=== PATIENT | female | born 1995 | race Caucasian/White ===

== ENCOUNTER 2016-08-23 11:30 | Emergency (ER) | payer MEDICAID ==
[2016-08-23] MEDS ORDERED: ALBUTEROL NEB 2.5 MG/3 ML INH STA (12:21)
[2016-08-23] MEDS ORDERED: predniSONE 20 MG TABLET PO STA (12:21)
[2016-08-23] MEDS ORDERED: predniSONE 20 MG TABLET ONE (12:29)
[2016-08-23] MEDS ORDERED: ALBUTEROL NEB 2.5 MG/3 ML INH ONE (12:30)
== END 2016-08-23 13:02 | disposition home or self-care (01) ==
DX: J06.9 Acute upper respiratory infection, unspecified (principal); B97.89 Other viral agents as the cause of diseases classified elsewhere; J45.909 Unspecified asthma, uncomplicated; K21.9 Gastro-esophageal reflux disease without esophagitis
CPT/HCPCS: 71020; 94150; 94640; 99283; 99284; J7512; J7613

== ENCOUNTER 2016-09-25 10:24 | Outpatient (CLI) | payer MEDICAID | END 2016-09-25 10:25 | disposition home or self-care (01) | DX: J20.9 Acute bronchitis, unspecified (principal) ==

== ENCOUNTER 2016-10-25 00:38 | Emergency (ER) | payer MEDICAID ==
--- NOTE | 2016-10-25 00:57 | ED Physician Documentation ---
PD HPI FEMALE - Stated complaint Stated Complaint: 8W ,BLEEDING - Chief complaint Chief Complaint: General - History obtained from History obtained from: Patient - History of Present Illness Timing - onset: Enter time (18:00), Today Timing - duration: Hours Timing - details: Abrupt onset Pain level max: 0 Associated symptoms: Vaginal bleeding. No: Fever Contributing factors: Recently seen: Not recently seen - Additional information Additional information: vaginal bleeding approximately 6PM after intercourse. she has mild pelvic cramping as well. she is approximately 8 weeks Review of Systems Constitutional: reports: Reviewed and negative Cardiac: reports: Reviewed and negative Respiratory: reports: Reviewed and negative GI: reports: Reviewed and negative : reports: Vaginal bleeding, Now EGA. 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 : None HEENT: None Psych: None Musculoskeletal: None Derm: None - Past Surgical History Past Surgical History: Yes /HYGIENE TEACHER: section - Present Medications Home Medications: Ambulatory Orders Medication Instructions Recorded Confirmed Albuterol Sulf [Ventolin Hfa 1 puffs INH Q4HR PRN 05/25/16 08/23/16 Inhaler] Albuterol Oral Soln 1 amp INH Q3HR PRN 08/23/16 08/23/16 Benzonatate [Tessalon Perle] 100 mg PO TID PRN #30 capsule 08/23/16 Prednisone 40 mg PO DAILY 5 Days 08/23/16 - Allergies Allergies/Adverse Reactions: Allergies Allergy/AdvReac Type Severity Reaction Status Date / Time No Known Drug Allergies Allergy Verified 10/25/16 00:44 - Social History Does the pt smoke?: No Smoking Status: Never smoker Does the pt drink ETOH?: No Does the pt have substance abuse?: No - Immunizations Immunizations are current?: No Immunizations: TDAP >10years/unknown - POLST Patient has POLST: No PD ED PE NORMAL - Vitals Vital signs reviewed: Yes - General General: Alert and oriented X 3, No acute distress, Well developed/nourished - Cardiac Cardiac: RRR, No murmur - Respiratory Respiratory: No respiratory distress, Clear bilaterally - Abdomen Abdomen: Normal bowel sounds, Soft, Non tender, Non distended - Back Back: No CVA TTP Results - Vitals Vitals: Oxygen O2 Source Room air - Labs Labs: Laboratory Tests 10/25/16 10/25/16 10/25/16 00:32 01:59 01:59 WBC 9.4 RBC 4.52 Hgb 13.0 Hct 38.5 MCV 85.3 MCH 28.8 MCHC 33.8 RDW 13.7 Plt Count 175 MPV 10.1 Neut # 5.8 Lymph # 2.2 Pierce # 0.9 Eos # 0.4 Baso # 0.1 Absolute Nucleated RBC 0.00 Nucleated RBCs 0.0 HCG, Quant 1918.00 Urine Color YELLOW Urine Clarity CLEAR Urine pH 5.5 Ur Specific Silvis >=1.030 H Urine Protein NEGATIVE Urine Glucose (UA) NEGATIVE Urine Ketones NEGATIVE Urine Occult Blood SMALL H Urine Nitrite NEGATIVE Urine Bilirubin NEGATIVE Urine Urobilinogen 0.2 (NORMAL) Ur Leukocyte Esterase NEGATIVE Urine RBC 0-5 Urine WBC 0-3 Ur Squamous Epith Cells FEW Squamous Urine Bacteria Rare Urine Mucus Moderate Strands Ur Microscopic Review INDICATED Urine Culture Comments NOT INDICATED Urine HCG, Qual POSITIVE Blood Type 10/25/16 01:59 WBC RBC Hgb Hct MCV MCH MCHC RDW Plt Count MPV Neut # Lymph # Pierce # Eos # Baso # Absolute Nucleated RBC Nucleated RBCs HCG, Quant Urine Color Urine Clarity Urine pH Ur Specific Silvis Urine Protein Urine Glucose (UA) Urine Ketones Urine Occult Blood Urine Nitrite Urine Bilirubin Urine Urobilinogen Ur Leukocyte Esterase Urine RBC Urine WBC Ur Squamous Epith Cells Urine Bacteria Urine Mucus Ur Microscopic Review Urine Culture Comments Urine HCG, Qual Blood Type O POSITIVE - Rads (name of study) pelvic/TV US Radiology: Prelim report reviewed, See rad report PD MEDICAL DECISION MAKING - ED course Complexity details: reviewed results, re-evaluated patient, considered differential, d/w patient Departure - Departure Disposition: 01 Home, Self Care Clinical Impression: Vaginal bleeding in Condition: Good Instructions: ED Miscarriage Poss Follow-Up: Suyapa Alas DO [Provider Admit Priv/Credential] - (Call Thursday to arrange for next available appointment) Discharge Date/Time: 10/25/16 04:20
[2016-10-25 01:13] LABS: BILIRUBIN,URINE NEGATIVE (NEGATIVE); HCG UR QUAL POSITIVE; PH,URINE 5.5 PH (5.0-7.5); UA w/ MICROSCOPIC CHARGE YES
[2016-10-25 01:21] LABS: UR CULTURE IF IND NOT INDICATED; WBC,URINE 0-3 /HPF (0-5)
[2016-10-25 02:09] LABS: BASOPHILS # (AUTO) 0.1 10^3/uL (0.0-0.1); BASOPHILS % (AUTO) 1.3 %; EOSINOPHILS # (AUTO) 0.4 10^3/uL (0.0-0.7); EOSINOPHILS % (AUTO) 3.9 %; HCT - HEMATOCRIT 38.5 % (37.0-47.0); LYMPHOCYTES # (AUTO) 2.2 10^3/uL (1.5-3.5); LYMPHOCYTES % (AUTO) 23.4 %; MEAN CORPUSCULAR HEMOGLOBIN 28.8 pg (27.0-31.0); MEAN CORPUSCULAR HGB CONC 33.8 g/dL (32.0-36.0); MEAN CORPUSCULAR VOLUME 85.3 fL (81.0-99.0); MEAN PLATELET VOLUME 10.1 fL (7.9-10.8); MONOCYTES # (AUTO) 0.9 10^3/uL (0.0-1.0); MONOCYTES % (AUTO) 9.8 %; NEUTROPHILS # (AUTO) 5.8 10^3/uL (1.5-6.6); NEUTROPHILS % (AUTO) 61.6 %; RED BLOOD COUNT 4.52 10^6/uL (4.20-5.40); RED CELL DISTRIBUTION WIDTH 13.7 % (12.0-15.0); UNCORRECTED WHITE BLOOD COUNT 9.4 x10^3/uL; WHITE BLOOD COUNT 9.4 x10^3/uL (4.8-10.8)
[2016-10-25 03:41] VITALS: BP 148/55
--- NOTE | 2016-10-25 03:41 | Ultrasound Preliminary Report ---
Exam: US OB First Trimester IMPRESSION: 1. Single intrauterine gestational sac at EGA 6 weeks 1 day with NICHOLE 06/19/2017 based on crown-rump l ength, which is discordant with clinical dates. 2. No yolk sac or cardiac activity identified. Sac position is lower than typically seen. Sonographic follow-up is recommended. [facility] SITE ID: [id number]
--- NOTE | 2016-10-25 03:42 | Ultrasound Preliminary Report ---
Exam: US OB Transvaginal IMPRESSION: 1. Single intrauterine gestational sac at EGA 6 weeks 1 day with NICHOLE 06/19/2017 based on crown-rump l ength, which is discordant with clinical dates. 2. No yolk sac or cardiac activity identified. Sac position is lower than typically seen. Sonographic follow-up is recommended. [facility] SITE ID: [id number]
--- NOTE | 2016-10-25 03:44 | Ultrasound Report ---
EXAM: FIRST TRIMESTER OBSTETRIC ULTRASOUND (Less than 11 weeks) EXAM DATE: 10/25/2016 02:56 AM. CLINICAL HISTORY: Vaginal bleeding, . LMP: 09/01/2016. COMPARISONS: None. TECHNIQUE: Transabdominal and transvaginal ultrasound examination with static image documentation. CLINICAL DATES: EGA 7 weeks 5 days with NICHOLE 06/08/2017 based on LMP. ASSESSMENT: Gestational Sac: Single intrauterine, somewhat low in the endometrial cavity. Mean gestational sac d iameter: 11.1 mm = 5 weeks 6 days. Embryo: CRL (crown-rump length) 3 mm = 6 weeks 1 day. Cardiac activity: Not seen. Yolk sac: Not seen. Early placenta: Not visible at this gestational age. Other: There is a tiny collection adjacent to the gestational sac measuring 3 mm.. MATERNAL STRUCTURES: Uterus: Anteverted/Retroverted. Unremarkable. Cervix: Closed. Right Ovary: 3.0 x 2.9 x 2.8 cm, volume 12.7 cc. Unremarkable. Left Ovary: 2.9 x 2.5 x 2.3 cm, volume 8.5 cc. Unremarkable. Free Fluid: None. Other: None. IMPRESSION: 1. Single intrauterine gestational sac at EGA 6 weeks 1 day with NICHOLE 06/19/2017 based on crown-rump l ength, which is discordant with clinical dates. 2. No yolk sac or cardiac activity identified. Sac position is lower than typically seen. Sonographic follow-up is recommended. [facility] Referring Provider Line: [phone] SITE ID: [id number]
== END 2016-10-25 04:20 | disposition home or self-care (01) ==
LOC: ED 00:38
DX: O20.9 Hemorrhage in early pregnancy, unspecified (principal); O99.511 Diseases of the respiratory system complicating pregnancy, first trimester; J45.909 Unspecified asthma, uncomplicated; O99.611 Diseases of the digestive system complicating pregnancy, first trimester; K21.9 Gastro-esophageal reflux disease without esophagitis; Z3A.01 Less than 8 weeks gestation of pregnancy
CPT/HCPCS: 36415; 76801; 76817; 81001; 81003; 81025; 84702; 85025; 86900; 86901; 87086; 99283

== ENCOUNTER 2017-07-03 18:02 | Emergency (ER) | payer MEDICAID ==
[2017-07-03] MEDS ORDERED: SODIUM CHLORIDE 0.9% 1,000 ML IV ONE ×2 (18:48)
[2017-07-03 19:17] LABS: BASOPHILS # (AUTO) 0.1 10^3/uL (0.0-0.1); EOSINOPHILS # (AUTO) 0.3 10^3/uL (0.0-0.7); EOSINOPHILS % (AUTO) 4.1 %; HGB - HEMOGLOBIN 13.2 g/dL (12.0-16.0); LYMPHOCYTES # (AUTO) 1.7 10^3/uL (1.5-3.5); LYMPHOCYTES % (AUTO) 23.3 %; MEAN CORPUSCULAR HEMOGLOBIN 28.3 pg (27.0-31.0); MEAN CORPUSCULAR HGB CONC 33.2 g/dL (32.0-36.0); MEAN CORPUSCULAR VOLUME 85.2 fL (81.0-99.0); MONOCYTES # (AUTO) 0.7 10^3/uL (0.0-1.0); MONOCYTES % (AUTO) 9.5 %; NEUTROPHILS # (AUTO) 4.6 10^3/uL (1.5-6.6); NEUTROPHILS % (AUTO) 62.1 %; PLT - PLATELET COUNT 183 10^3/uL (130-450); RED BLOOD COUNT 4.67 10^6/uL (4.20-5.40); WHITE BLOOD COUNT 7.3 x10^3/uL (4.8-10.8)
[2017-07-03 19:30] LABS: ALBUMIN 3.9 g/dL (3.2-5.5); ALBUMIN/GLOBULIN RATIO 1.1 (1.0-2.2); BILIRUBIN,TOTAL 0.4 mg/dL (0.2-1.0); CALCIUM 8.8 mg/dL (8.5-10.3); CREATININE 0.6 mg/dL (0.4-1.0); TOTAL PROTEIN 7.3 g/dL (6.7-8.2)
--- NOTE | 2017-07-03 19:32 | ED Physician Documentation ---
History of Present Illness - Stated complaint Stated Complaint: 8 WEEKS/VOMITING - Chief complaint Chief Complaint: Abd Pain - History obtained from History obtained from: Patient - History of Present Illness Timing: How many days ago (several) Pain level max: 4 Pain level now: 4 Improved by: nothing Worsened by: nothing - Additonal information Additional information: Patient is a 21-year-old female 5 para 3 who presents to the emergency department with vomiting for the past several days. States this is typical in her pregnancies. She denies any vaginal bleeding or discharge, but does have right-sided pelvic pain. This is been increasing as well. Has not had an ultrasound yet. Review of Systems Constitutional: denies: Fever, Chills Nose: denies: Rhinorrhea / runny nose, Congestion Throat: denies: Sore throat GI: reports: Nausea, Vomiting. 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 07/03/17 [Yael Rodriguez 10-10 mg Tablet] Metoclopramide [Reglan] 10 mg PO Q6H PRN #10 tablet 07/03/17 - Allergies Allergies/Adverse Reactions: Allergies Allergy/AdvReac Type Severity Reaction Status Date / Time No Known Drug Allergies Allergy Verified 07/03/17 18:27 - Social History Does the pt smoke?: No Smoking Status: Never smoker Does the pt drink ETOH?: No Does the pt have substance abuse?: No - Immunizations Immunizations are current?: Yes Immunizations: TDAP >10years/unknown - POLST Patient has POLST: No PD ED PE NORMAL - Vitals Vital signs reviewed: Yes - General General: Alert and oriented X 3, No acute distress - HEENT HEENT: Moist mucous membranes - Neck Neck: Supple, no meningeal sign - Cardiac Cardiac: RRR - Respiratory Respiratory: No respiratory distress, Clear bilaterally - Abdomen Abdomen: Soft, Non tender, Non distended - Derm Derm: Warm and dry, No rash - Extremities Extremities: No edema, No calf tenderness / cord - Neuro Neuro: Alert and oriented X 3 - Psych Psych: Normal mood, Normal affect Results - Vitals Vitals: Vital Signs - 24 hr 07/03/17 07/03/17 07/03/17 18:23 20:37 22:40 Temperature 36.8 C 36.5 C Heart Rate 98 92 95 Respiratory 16 16 18 Rate Blood Pressure 150/64 H 141/79 H 158/88 H O2 Saturation 99 98 100 Oxygen O2 Source Room air - Labs Labs: Laboratory Tests 07/03/17 07/03/17 07/03/17 16:00 19:00 19:08 WBC 7.3 RBC 4.67 Hgb 13.2 Hct 39.8 MCV 85.2 MCH 28.3 MCHC 33.2 RDW 14.0 Plt Count 183 MPV 10.0 Neut # 4.6 Lymph # 1.7 Lagrange # 0.7 Eos # 0.3 Baso # 0.1 Absolute Nucleated RBC 0.01 Nucleated RBC % 0.1 Sodium Potassium Chloride Carbon Dioxide Anion Gap BUN Creatinine Estimated GFR (MDRD) Glucose Calcium Total Bilirubin AST ALT Alkaline Phosphatase Total Protein Albumin Globulin Albumin/Globulin Ratio Lipase HCG, Quant 19090.00 Urine Color YELLOW Urine Clarity CLEAR Urine pH 7.5 Ur Specific Parnell 1.015 Urine Protein TRACE Urine Glucose (UA) NEGATIVE Urine Ketones NEGATIVE Urine Occult Blood NEGATIVE Urine Nitrite NEGATIVE Urine Bilirubin NEGATIVE Urine Urobilinogen 1 (NORMAL) Ur Leukocyte Esterase NEGATIVE Ur Microscopic Review NOT INDICATED Urine Culture Comments NOT INDICATED 07/03/17 19:08 WBC RBC Hgb Hct MCV MCH MCHC RDW Plt Count MPV Neut # Lymph # Lagrange # Eos # Baso # Absolute Nucleated RBC Nucleated RBC % Sodium 134 L Potassium 3.6 Chloride 101 Carbon Dioxide 23 Anion Gap 10.0 BUN 9 Creatinine 0.6 Estimated GFR (MDRD) 126 Glucose 91 Calcium 8.8 Total Bilirubin 0.4 AST 16 ALT 13 Alkaline Phosphatase 72 Total Protein 7.3 Albumin 3.9 Globulin 3.4 Albumin/Globulin Ratio 1.1 Lipase 19 L HCG, Quant Urine Color Urine Clarity Urine pH Ur Specific Parnell Urine Protein Urine Glucose (UA) Urine Ketones Urine Occult Blood Urine Nitrite Urine Bilirubin Urine Urobilinogen Ur Leukocyte Esterase Ur Microscopic Review Urine Culture Comments - Rads (name of study) pelvic US Radiology: Prelim report reviewed, EMP read contemporaneously, See rad report ( Single viable intrauterine at EGA 6 weeks 3 days with NICHOLE 02/23/2018 based on crown-rump length Small mack-gestational bleed. ) PD MEDICAL DECISION MAKING - ED course Complexity details: reviewed old records, reviewed results, re-evaluated patient , considered differential, d/w patient ED course: Patient presents to the emergency department with -induced vomiting. Feels better after IV fluids and was tolerating p.o. without difficulty here. Ultrasound reveals an intrauterine with a heart rate. No evidence of ectopic . We will have her follow-up with her doctor for further evaluation and care. Patient counseled regarding signs and symptoms for which I believe and urgent re-evaluation would be necessary. Patient with good understanding of and agreement to plan and is comfortable going home at this time This document was made in part using voice recognition software. While efforts are made to proofread this document, sound alike and grammatical errors may occur. Departure - Departure Disposition: 01 Home, Self Care Clinical Impression: First trimester , Vomiting of Condition: Good Instructions: ED Preg Morning Sickness Follow-Up: Jazzmine Resendez ARNP [Primary Care Provider] - Within 1 week Prescriptions: Doxylamine/Pyridoxine HCl [Yael Rodriguez 10-10 mg Tablet] 2 tab PO QPM PRN #20 tablet. PRN Reason: vomiting Metoclopramide [Reglan] 10 mg PO Q6H PRN #10 tablet PRN Reason: Nausea / Vomiting Comments: Return if you worsen. Drink plenty of fluids at home. Forms: Activity restrictions Discharge Date/Time: 07/03/17 22:42
[2017-07-03 19:40] LABS: BILIRUBIN,URINE NEGATIVE (NEGATIVE); GLUCOSE, URINE (UA) NEGATIVE (NEGATIVE); KETONES,URINE (UA) NEGATIVE (NEGATIVE); LEUKOCYTE ESTERASE, URINE NEGATIVE (NEGATIVE); NITRITE,URINE NEGATIVE (NEGATIVE); OCCULT BLOOD,URINE NEGATIVE (NEGATIVE); PH,URINE 7.5 PH (5.0-7.5); PROTEIN,URINE TRACE mg/dL (NEGATIVE); UROBILINOGEN,URINE 1 (NORMAL) E.U./dL (NORMAL)
[2017-07-03 19:41] LABS: CLARITY,URINE CLEAR (CLEAR)
--- NOTE | 2017-07-03 22:46 | Ultrasound Report ---
EXAM: FIRST TRIMESTER OBSTETRIC ULTRASOUND (Less than 11 weeks) EXAM DATE: 07/03/2017 10:18 PM. CLINICAL HISTORY: Right pelvic pain, positive test. LMP: Unsure. COMPARISONS: None. TECHNIQUE: Transabdominal and transvaginal ultrasound examination with static image documentation. FINDINGS: Gestational Sac: Single intrauterine. Mean gestational sac diameter: 27.4 mm = 70 weeks 5 days, NICHOLE 02/14/2018. Embryo: CRL (crown-rump length) 5.2 mm = 6 weeks 3 days, NICHOLE 02/23/2018. Cardiac activity: 147 beats per minute. Yolk sac: 4.6 mm. Amniotic fluid: Not accurately assessed at this gestational age. Early placenta: Not visible at this gestational age. Other: Perigestational bleed measuring 1.6 x 0.9 x 0.9 cm seen at the right aspect.. MATERNAL STRUCTURES: Uterus: Anteverted. Unremarkable. Cervix: Closed. Right Ovary/Adnexa: Unremarkable. The ovary measures 3.2 x 2.1 x 2.3 cm, volume 8 cc. Left Ovary/Adnexa: Unremarkable. The ovary measures 1.9 x 1.5 x 1.9 cm, volume 2.8 cc. Free Fluid: None. IMPRESSION: 1. Single viable intrauterine at EGA 6 weeks 3 days with NICHOLE 02/23/2018 based on crown-rump length 2. Small mack-gestational bleed. [facility] Referring Provider Line: [phone] SITE ID: [id number]
--- NOTE | 2017-07-03 22:46 | Ultrasound Preliminary Report ---
Exam: US OB FIRST TRIMESTER IMPRESSION: 1. Single viable intrauterine at EGA 6 weeks 3 days with NICHOLE 02/23/2018 based on crown-rump length 2. Small mack-gestational bleed. [facility] SITE ID: [id number]
[2017-07-03 23:25] VITALS: BP 158/88
== END 2017-07-03 22:42 | disposition home or self-care (01) ==
LOC: ED 18:02
DX: O21.9 Vomiting of pregnancy, unspecified (principal); Z3A.08 8 weeks gestation of pregnancy
CPT/HCPCS: 36415; 76801; 76817; 80053; 81001; 81003; 83690; 84702; 85025; 87086; 96360; 99283

== ENCOUNTER 2017-08-17 14:14 | Outpatient (CLI) | payer MEDICAID | END 2017-08-17 14:15 | disposition home or self-care (01) | LOC: LAB.R 14:14 | PROVIDERS: ATTEND Obstetrics & Gynecology | DX: Z11.3 Encounter for screening for infections with a predominantly sexual mode of transmission (principal) | CPT/HCPCS: 87491; 87591 ==

== ENCOUNTER 2017-11-05 07:37 | Outpatient (CLI) | payer MEDICAID ==
--- NOTE | 2017-11-06 13:16 | Ultrasound Report ---
OB ULTRASOUND: 11/05/2017 CLINICAL INDICATION: anatomy. COMPARISON: 07/03/2017. TECHNIQUE: Real-time scanning was performed with disability representative static images obtained. LAST MENSTRUAL PERIOD: 05/19/2017 Clinical Age: 24 weeks 2 days US Age: 24 weeks 3 days EFW Hadlock: 738 grams EFW% Hadlock: 65% Heart Rate: 159 bpm EDC: 02/23/2018 US EDC: 02/22/2018 BPD Hadlock: 23 weeks 2 days; Mean mm 57 HC Hadlock: 24 weeks 3 days; Mean mm 224 AC Hadlock: 24 weeks 4 days; Mean mm 200 FL Hadlock: 25 weeks 3 days; Mean mm 46 Presentation: variable Placental Location: posterior Cervical Length: TA 6.1 cm Amniotic Fluid: JUNE 12.7 cm; subjectively normal; MVP 3.6 cm FINDINGS There is a single viable intrauterine gestation, in variable presentation. heart rate is 159 BPM. The placenta is posterior, without evidence of previa. Amniotic fluid volume is subjectively normal, with a deepest pocket of 3.6 cm. By size, the fetus measures 24 weeks 3 days (24 weeks 2 days by initial sonogram ). The following anatomic structures were visualized and appear normal: The intracranial contents, including the ventricles and posterior fossa; the lips and orbits; the spine; the heart, including 4 chamber view and outflow tracts, and diaphragm; the abdominal contents, including the stomach, the bilateral kidneys, and urinary bladder, as well as a normal 3-vessel cord insertion; 4 limbs. Note is made of mild left renal pelviectasis, measuring 5 mm. No free fluid or adnexal lesion is appreciated. IMPRESSION: SINGLE VIABLE INTRAUTERINE GESTATION, WITH EXPECTED GROWTH FROM THE INITIAL SONOGRAM. MILD LEFT RENAL PELVIECTASIS. THIS SHOULD BE REEVALUATED IN THE THIRD TRIMESTER. OTHERWISE NORMAL ANATOMIC SURVEY. [facility]2017 10[facility]
== END 2017-11-05 07:38 | disposition home or self-care (01) ==
LOC: DI 07:37
PROVIDERS: ATTEND Obstetrics & Gynecology
DX: Z36.9 Encounter for antenatal screening, unspecified (principal); R93.8 Abnormal findings on diagnostic imaging of other specified body structures
CPT/HCPCS: 76811

== ENCOUNTER 2017-11-13 14:01 | Outpatient (CLI) | payer MEDICAID ==
[2017-11-13 14:29] LABS: BASOPHILS % (AUTO) 0.4 %; EOSINOPHILS # (AUTO) 0.2 10^3/uL (0.0-0.7); EOSINOPHILS % (AUTO) 1.7 %; HGB - HEMOGLOBIN 12.8 g/dL (12.0-16.0); LYMPHOCYTES # (AUTO) 1.5 10^3/uL (1.5-3.5); LYMPHOCYTES % (AUTO) 15.7 %; MEAN CORPUSCULAR HEMOGLOBIN 28.9 pg (27.0-31.0); MEAN CORPUSCULAR HGB CONC 33.9 g/dL (32.0-36.0); MEAN CORPUSCULAR VOLUME 85.2 fL (81.0-99.0); MEAN PLATELET VOLUME 9.9 fL (7.9-10.8); MONOCYTES # (AUTO) 0.5 10^3/uL (0.0-1.0); MONOCYTES % (AUTO) 5.7 %; NEUTROPHILS # (AUTO) 7.2 10^3/uL (1.5-6.6); NEUTROPHILS % (AUTO) 76.5 %; PLT - PLATELET COUNT 154 10^3/uL (130-450); RED BLOOD COUNT 4.44 10^6/uL (4.20-5.40); RED CELL DISTRIBUTION WIDTH 14.1 % (12.0-15.0); WHITE BLOOD COUNT 9.5 x10^3/uL (4.8-10.8)
[2017-11-13 14:30] LABS: BILIRUBIN,URINE NEGATIVE (NEGATIVE); GLUCOSE, URINE (UA) NEGATIVE (NEGATIVE); KETONES,URINE (UA) 15 mg/dL (NEGATIVE); LEUKOCYTE ESTERASE, URINE TRACE (NEGATIVE); NITRITE,URINE NEGATIVE (NEGATIVE); OCCULT BLOOD,URINE NEGATIVE (NEGATIVE); PH,URINE 6.5 PH (5.0-7.5); PROTEIN,URINE TRACE mg/dL (NEGATIVE); UROBILINOGEN,URINE 0.2 (NORMAL) E.U./dL (NORMAL)
[2017-11-13 14:31] LABS: CLARITY,URINE CLEAR (CLEAR)
[2017-11-13 14:39] LABS: BACTERIA,URINE Few /HPF (None Seen); MUCUS,URINE Moderate Strands; RBC,URINE 0-5 /HPF (0-5); SQUAMOUS EPITHELIAL CELL,UR FEW Squamous (<= Few)
[2017-11-14 12:11] LABS: HIV AG/AB 4TH GEN NON-REACTIVE (NON-REACTIVE)
[2017-11-14 16:12] LABS: HEPATITIS B SURFACE ANTIGEN NON-REACTIVE (NON-REACTIVE)
== END 2017-11-13 14:02 | disposition home or self-care (01) ==
LOC: LAB 14:01
PROVIDERS: ATTEND Obstetrics & Gynecology
DX: Z36.9 Encounter for antenatal screening, unspecified (principal)
CPT/HCPCS: 36415; 81001; 81599; 85025; 86592; 86762; 86850; 86900; 86901; 87340; 87389

== ENCOUNTER 2017-11-30 14:08 | Outpatient (CLI) | payer MEDICAID ==
[2017-11-30 18:03] LABS: HGB - HEMOGLOBIN 12.2 g/dL (12.0-16.0); MEAN CORPUSCULAR HEMOGLOBIN 29.1 pg (27.0-31.0); MEAN CORPUSCULAR VOLUME 88.2 fL (81.0-99.0); RED BLOOD COUNT 4.18 10^6/uL (4.20-5.40); WHITE BLOOD COUNT 8.5 x10^3/uL (4.8-10.8)
== END 2017-11-30 14:09 | disposition home or self-care (01) ==
LOC: LAB.F 14:08
PROVIDERS: ATTEND Obstetrics & Gynecology
DX: Z34.90 Encounter for supervision of normal pregnancy, unspecified, unspecified trimester (principal)
CPT/HCPCS: 36415; 82950; 85025; 85027; 86850

== ENCOUNTER 2018-01-14 14:26 | Outpatient (CLI) | payer MEDICAID ==
--- NOTE | 2018-01-14 16:31 | Ultrasound Report ---
Procedure Date: 01/14/2018 Accession Number: [id number] / [id number] Procedure: US - OB F/U or Repeat CPT Code: FULL RESULT: EXAM: OB F/U or Repeat DATE: 01/14/2018 3:06 PM CLINICAL HISTORY: ENCOUNTER FOR OTHER SCREENING FOLLOW UP TECHNIQUE: Real-time scanning was performed with sales representative supervisor static images obtained. COMPARISON: 11/05/2017. Clinical Age: 34 weeks 2 days US Age: 34 weeks 2 days EFW Hadlock: 2312 grams EFW % Hadlock: 35% Heart Rate: 161 bpm EDC: 02/23/2018 US EDC: 02/23/2018 BPD Hadlock: 35 weeks 2 days; Mean mm 88 HC Hadlock: 34 weeks 0 days; Mean mm 306 AC Hadlock: 33 weeks 5 days; Mean mm 297 FL Hadlock: 33 weeks 6 days; Mean mm 66 Presentation: Breech Placental Location: Posterior Cervical Length: 3.6 cm Amniotic Fluid: JUNE 13.6 cm; MVP 5.8 cm FINDINGS: Single live intrauterine gestation in breech position with a posterior placenta without evidence of previa and a current sonographic age of 34 weeks and 2 days. Previously seen mild left renal pelviectasis has resolved. IMPRESSION: Single live intrauterine gestation with appropriate interval growth and resolution of previously seen left renal pelviectasis.
== END 2018-01-14 14:27 | disposition home or self-care (01) ==
LOC: DI 14:26
PROVIDERS: ATTEND Obstetrics & Gynecology
DX: Z36.2 Encounter for other antenatal screening follow-up (principal)
CPT/HCPCS: 76816

== ENCOUNTER 2018-01-29 10:39 | Outpatient (CLI) | payer MEDICAID | END 2018-01-29 10:40 | disposition home or self-care (01) | LOC: LAB.R 10:39 | PROVIDERS: ATTEND Obstetrics & Gynecology | DX: Z36.85 Encounter for antenatal screening for Streptococcus B (principal) | CPT/HCPCS: 87081 ==

== ENCOUNTER 2018-02-16 07:57 | Inpatient (IN) | payer MEDICAID ==
[2018-02-16] MEDS ORDERED: LACTATED RINGERS 2,000 ML IV ONE (08:20)
[2018-02-16] MEDS ORDERED: SODIUM CHLORIDE FLUSH 0.9% 10 ML SYRINGE ONE (08:20)
[2018-02-16] MEDS ORDERED: ceFAZolin 2 GM/50 ML 2 GM/50 ML BAG IV ONE (08:41)
[2018-02-16] MEDS ORDERED: CITRIC ACID/SODIUM CITRATE 15 ML UDC PO ONE (08:45)
[2018-02-16] MEDS ORDERED: SODIUM CHLORIDE FLUSH 0.9% 10 ML SYRINGE IVP SCH ×2 (09:00→17:00)
[2018-02-16] MEDS ORDERED: LACTATED RINGERS 1,000 ML IV SCH (09:00)
[2018-02-16 09:11] LABS: BASOPHILS % (AUTO) 0.5 %; EOSINOPHILS # (AUTO) 0.1 10^3/uL (0.0-0.7); HGB - HEMOGLOBIN 12.5 g/dL (12.0-16.0); LYMPHOCYTES # (AUTO) 1.6 10^3/uL (1.5-3.5); LYMPHOCYTES % (AUTO) 17.7 %; MEAN CORPUSCULAR HEMOGLOBIN 29.5 pg (27.0-31.0); MEAN CORPUSCULAR HGB CONC 34.5 g/dL (32.0-36.0); MEAN CORPUSCULAR VOLUME 85.5 fL (81.0-99.0); MONOCYTES # (AUTO) 0.5 10^3/uL (0.0-1.0); MONOCYTES % (AUTO) 5.7 %; NEUTROPHILS # (AUTO) 6.6 10^3/uL (1.5-6.6); NEUTROPHILS % (AUTO) 75.1 %; PLT - PLATELET COUNT 106 10^3/uL (130-450); RED BLOOD COUNT 4.24 10^6/uL (4.20-5.40); RED CELL DISTRIBUTION WIDTH 15.5 % (12.0-15.0); WHITE BLOOD COUNT 8.8 x10^3/uL (4.8-10.8)
--- NOTE | 2018-02-16 09:28 | ANESTHESIA ---
Pre-Anesthesia VS, & Labs - Diagnosis repeat section - Procedure section Vital Signs: Temp Pulse Resp BP Pulse Ox 36.9 C 71 20 116/72 98 02/16/18 08:14 02/16/18 09:05 02/16/18 09:05 02/16/18 09:05 02/16/18 09:05 Height 5 ft 4.5 in Weight (kg) 113.398 kg Body Mass Index 42.9 - NPO >8 hours Last Fluid Intake: coffee sip at 730 Last Food Intake: last pm - Is Patient ?: Yes - Lab Results Lab results reviewed: Yes Fish Bones: 02/16/18 09:00 Home Medications and Allergies Home Medications: Ambulatory Orders Medication Instructions Recorded Confirmed Doxylamine/Pyridoxine HCl 2 tab PO QPM PRN #20 tablet. 07/03/17 [Yael Rodriguez 10-10 mg Tablet] Metoclopramide [Reglan] 10 mg PO Q6H PRN #10 tablet 07/03/17 Allergies/Adverse Reactions: Allergies Allergy/AdvReac Type Severity Reaction Status Date / Time No Known Drug Allergies Allergy Verified 07/03/17 18:27 Anes History & Medical History - Anesthetic History Anesthesia Complications: reports: No previous complications - Medical History Cardiovascular: reports: None Pulmonary: reports: Asthma, Pneumonia Gastrointestinal: reports: GERD Urinary: reports: None Musculoskeletal: reports: None Endocrine/Autoimmune: reports: None Blood Disorders: reports: None Skin: reports: None Smoking Status: Never smoker - Surgical History Gynecologic: section Exam General: Alert Mouth Openin Fingerbreadth Mallampati classification: II Thyromental Distance: greater than 6 cm Respiratory: Lungs clear Cardiovascular: Regular rate Mental/Cognitive Status: Alert/Oriented X3 Plan Anesthesia Type: Spinal Consent for Procedure(s) Verified and Reviewed: Yes Code Status: Attempt Resuscitation ASA classification: 2-Mild systemic disease Is this case an emergency?: Yes
[2018-02-16] MEDS ORDERED: LACTATED RINGERS 1,000 ML IV ONE ×2 (09:30→10:13)
[2018-02-16] MEDS ORDERED: diphenhydrAMINE 25 MG CAPSULE PO PRN (09:31)
[2018-02-16] MEDS ORDERED: SODIUM CHLORIDE FLUSH 0.9% 10 ML SYRINGE IVP PRN (09:31)
[2018-02-16] MEDS ORDERED: WITCH HAZEL/GLYCERIN 1 EACH MED..PAD TOP PRN (09:31)
[2018-02-16] MEDS ORDERED: OXYTOCIN/SODIUM CHLORIDE 500 ML IV ONE (09:31)
[2018-02-16] MEDS ORDERED: ZOLPIDEM 5 MG TABLET PO PRN (09:31)
--- NOTE | 2018-02-16 09:37 | OPERATIVE REPORT ---
Operative Report - General Admit Date: 02/16/18 Planned Procedure: Repeat section, bilateral salpingectomy Pre-Op Diagnosis: 3 prior sections; desires sterilization after counseling. Procedure Performed: Repeat lower segment transverse section; bilateral salpingectomy, Left uterine artery ligation Post Op Diagnosis: Same as above - Procedure Note Primary Surgeon: Kota Coleman MD, FACOG, FICS Secondary Surgeon: Suyapa Garcia DO, FACOG / , Awa Sauceda MD F ACOG Anesthesia Provider: Allie Sauceda, certified nurse upholstery cleaner Anesthesia Technique: Spinal Pathology: Tubes IV Fluids (mL): 1,300 Estimated Blood Loss (mL): 300 Urine Output (mL): 125 Drain/Tube Type: Other (Camp catheter) Complications: None
[2018-02-16] MEDS ORDERED: ACETAMINOPHEN 1,000 MG/100 ML 100 ML IV ONE (10:00)
[2018-02-16] MEDS ORDERED: diphenhydrAMINE INJ 50 MG/ML VIAL IVP ONE (10:00)
[2018-02-16] MEDS ORDERED: MORPHINE PF 5 MG/10 ML VIAL IVP ONE (10:00)
[2018-02-16] MEDS ORDERED: METOCLOPRAMIDE 10 MG/2 ML VIAL IVP ONE (10:00)
[2018-02-16] MEDS ORDERED: ePHEDrine 50 MG/ML VIAL IVP ONE (10:00)
[2018-02-16] MEDS ORDERED: ONDANSETRON 4 MG/2 ML VIAL IVP ONE (10:00)
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
[2018-02-16] MEDS: oxyCODONE 5 MG TABLET PO PRN ×3 (12:07→21:02)
[2018-02-16] MEDS: DOCUSATE SODIUM 100 MG CAPSULE PO SCH ×2 (12:07→21:02)
[2018-02-16] MEDS ORDERED: SCOPOLAMINE PATCH TOP PRN (13:09)
[2018-02-16] MEDS: ONDANSETRON 4 MG/2 ML VIAL IVP PRN ×2 (15:57→21:22)
[2018-02-16] MEDS: METOCLOPRAMIDE 10 MG/2 ML VIAL IVP SCH ×2 (16:53→22:53)
[2018-02-16] MEDS ORDERED: ALBUTEROL NEB 2.5 MG/3 ML INH PRN (17:40)
[2018-02-16] MEDS: ACETAMINOPHEN 500 MG TABLET PO SCH (18:20)
[2018-02-16] MEDS: LACTATED RINGERS 1,000 ML IV SCH (19:05)
[2018-02-16] MEDS: SODIUM CHLORIDE FLUSH 0.9% 10 ML SYRINGE IVP PRN ×2 (21:22→22:53)
[2018-02-16] MEDS ORDERED: CALCIUM CARBONATE CHEW 500 MG TABLET PO PRN (22:24)
[2018-02-16] MEDS ORDERED: FAMOTIDINE 20 MG TABLET PO PRN (22:30)
[2018-02-17] MEDS: ACETAMINOPHEN 500 MG TABLET PO SCH ×5 (00:38→23:39)
[2018-02-17] MEDS: LACTATED RINGERS 1,000 ML IV SCH (03:36)
[2018-02-17] MEDS: SODIUM CHLORIDE FLUSH 0.9% 10 ML SYRINGE IVP PRN (05:17)
[2018-02-17] MEDS: METOCLOPRAMIDE 10 MG/2 ML VIAL IVP SCH (05:17)
--- NOTE | 2018-02-17 05:28 | OPERATIVE REPORT ---
DATE OF SERVICE: 02/16/2018 Physician: Kota Coleman MD PREOPERATIVE DIAGNOSIS: Three prior sections; desires sterilization after counseling. POSTOPERATIVE DIAGNOSIS: Three prior sections; desires sterilization after counseling. NAME OF PROCEDURE: Repeat lower segment transverse section, bilateral salpingectomy, left uterine artery ligation, lysis of multiple adhesions. SURGEON: Kota Coleman MD, FACOG, FICS ANESTHESIA: Spinal. BOW STAPLER: Suyapa Alas D.O., FACOG SECOND BOW STAPLER: Awa Sauceda M.D., FACOG ANESTHESIOLOGIST: Allie Sauceda, Certified Nurse Tanker Serviceman PATHOLOGY: Tubes sent. INTRAVENOUS FLUIDS: 1300 ESTIMATED BLOOD LOSS: 300 URINE OUTPUT: 125, clear. DRAINS: Camp catheter. COMPLICATIONS: None. FINDINGS: At 1003 a living female infant was born, weighing 3048 grams and scoring Apgars of 9 and 9. There were no obvious congenital anomalies or trauma. There was no cord entanglement or difficulty with the shoulders. Cord was 3-vessel, of normal length and without any entanglement. The placenta was grade 2 and delivered intact. Cord blood samples were sent. The uterus was normal size with no intracavitary defects. There was no evidence of uterine fibroids. The ovaries appeared to be normal bilaterally with decidual changes. There were no tubal adhesions. TECHNIQUE: Prior to the surgery, we had a discussion of risks, benefits, and alternatives. She confirmed that she desired a tubal ligation. All paperwork was signed. DESCRIPTION OF PROCEDURE: The patient was placed on the operating table in the supine position. She was then moved to the sitting position, and spinal was uneventfully placed and returned to supine. She was prepped and draped in a customary, sterile fashion. Timeout briefing was done per protocol. We confirmed anesthesia good up to level T10. At 0958, a Pfannenstiel incision was used to uneventfully open the abdominal wall. As expected, there were dense and multiple intraabdominal adhesions. These were uneventfully lysed sharply and with LigaSure. The position of the fetus and placenta were then assessed by palpation. A curvilinear hysterotomy was carved in the lower segment. Upon entry into the amniotic cavity, clear fluid was spilled. The wound was gently widened with lateral finger traction. The head was grasped with the ear pull machine operator's right hand, and guided through the hysterotomy and laparotomy wound with the aid of uterine pressure applied by Dr. Alas. Shoulders were uneventfully delivered. Oral and nasopharynx were suctioned. Cord was doubly clamped and transected. A segment of cord was placed on the back table in case there was question about well being. Cord blood sample was taken. The uterus was exteriorized. With gentle massage , the placenta was expelled intact. The margins of the hysterotomy were marked with ring forceps. Hysterotomy was closed in 2 layers, first with a running interlock stitch of 0 Vicryl, followed by an imbricating layer of 0 Vicryl in a cardinal stitch fashion. The left corner of the incision had an exposed branch of the uterine artery, which was doubly ligated. The area still remained weepy. An additional 2 stitches of 0 Vicryl were placed. There was continued ooze, and so an O'Olancha stitch was placed to ligate the left uterine vessel below the level of the hysterotomy wound which provided complete hemostasis. Attention was next turned to the tubal ligation/salpingectomy. The tubes were drawn anteriorly with the aid of Kami clamps. The mesosalpinx was doubly desiccated, then divided using a LigaSure device. Both the right and left tube were removed in toto. We reinspected all operative sites and returned the uterus into the abdomen. Colic gutters were inspected and there was no backbleeding. There were some additional omental adhesions that were lysed with LigaSure. The peritoneum was closed with a running stitch of 2-0 Vicryl. The rectus muscle was reapproximated with interrupted stitches of 0 Vicryl. Fascia was closed in 2 parts with a running stitch of 0 Vicryl. The subcutaneous space was closed with interrupted sutures of 2-0 chromic. Skin was closed with a running stitch of 4-0 Monocryl. A wound vacuum dressing was applied. The patient was aroused. All sponge, needle and instrument counts were confirmed as correct. The patient was taken uneventfully to Labor and Delivery for recovery. MEDICATIONS 1. Preop antibiotic Ancef 2 grams. 2. IV Pitocin, postdelivery as a uterotonic. 3. Toradol 30mg IV 4. Tylenol 1 g IV TD: 02/16/2018 17:46 MTDD
[2018-02-17] MEDS: CELECOXIB 100 MG CAPSULE PO SCH ×3 (06:02→21:32)
[2018-02-17 06:11] LABS: BASOPHILS % (AUTO) 0.3 %; EOSINOPHILS # (AUTO) 0.1 10^3/uL (0.0-0.7); EOSINOPHILS % (AUTO) 1.2 %; HGB - HEMOGLOBIN 11.1 g/dL (12.0-16.0); LYMPHOCYTES # (AUTO) 1.3 10^3/uL (1.5-3.5); LYMPHOCYTES % (AUTO) 16.8 %; MEAN CORPUSCULAR HEMOGLOBIN 29.3 pg (27.0-31.0); MEAN CORPUSCULAR HGB CONC 33.3 g/dL (32.0-36.0); MEAN CORPUSCULAR VOLUME 87.9 fL (81.0-99.0); MEAN PLATELET VOLUME 11.9 fL (7.9-10.8); MONOCYTES # (AUTO) 0.6 10^3/uL (0.0-1.0); MONOCYTES % (AUTO) 7.7 %; NEUTROPHILS # (AUTO) 5.5 10^3/uL (1.5-6.6); PLT - PLATELET COUNT 101 10^3/uL (130-450); RED BLOOD COUNT 3.78 10^6/uL (4.20-5.40); RED CELL DISTRIBUTION WIDTH 15.7 % (12.0-15.0); WHITE BLOOD COUNT 7.5 x10^3/uL (4.8-10.8)
[2018-02-17] MEDS: DOCUSATE SODIUM 100 MG CAPSULE PO SCH ×2 (08:55→21:33)
[2018-02-17] MEDS: oxyCODONE 5 MG TABLET PO PRN ×4 (08:55→21:32)
--- NOTE | 2018-02-17 10:44 | PROVIDER PROGRESS NOTE ---
Objective - Vital Signs/Intake & Output Vital Signs: Vital Signs x48h Temp Pulse Resp BP Pulse Ox 02/17/18 08:29 98.8 F 80 18 125/81 H 100 02/17/18 03:26 98.1 F 69 18 115/53 L 100 Intake & Output: Intake & Output 02/14/18 02/15/18 02/16/18 02/17/18 23:59 23:59 23:59 23:59 Intake Total 2456.667 763.333 Output Total 1445 1605 Balance 1011.667 -841.667 - Lab Results Fish Bones: 02/17/18 05:20 Other Labs: Lab Results x24hrs 02/17/18 Range/Units 05:20 WBC 7.5 (4.8-10.8) x10^3/uL RBC 3.78 L (4.20-5.40) 10^6/uL Hgb 11.1 L (12.0-16.0) g/dL Hct 33.2 L (37.0-47.0) % MCV 87.9 (81.0-99.0) fL MCH 29.3 (27.0-31.0) pg MCHC 33.3 (32.0-36.0) g/dL RDW 15.7 H (12.0-15.0) % Plt Count 101 L (130-450) 10^3/uL MPV 11.9 H (7.9-10.8) fL Neut # (Auto) 5.5 (1.5-6.6) 10^3/uL Lymph # (Auto) 1.3 L (1.5-3.5) 10^3/uL Banner # (Auto) 0.6 (0.0-1.0) 10^3/uL Eos # (Auto) 0.1 (0.0-0.7) 10^3/uL Baso # (Auto) 0.0 (0.0-0.1) 10^3/uL Absolute Nucleated RBC 0.00 x10^3/uL Nucleated RBC % 0.0 /100WBC Assessment/Plan - Problem List (1) History of delivery affecting Impression: S: Happy, ambulating, showered, eating, urinating well. without probs. Pain well-controlled. No emesis since yesterday. O: AVSS, Alert smiling, NAD. Abd soft, nt/nd. Uterus NT 3cm below umbilicus. Incision covered by wound vac, no surrounding tenderness or erythema. 2+ LE edema to mid-zimmerman, is symmetric. Hct stable. A/P: 22yo P4 POD #1 s/p repeat and bilateral salpingectomy due to prior x3, presented in labor, desired sterilization. Doing very well postop, anticipate normal course and likely d/c tomorrow. Asthma, pt has been using albuterol MDI at home at least daily for the past few months and sometimes multiple times per day. Is not on a long acting inhaler. Nebs available but not inhalers. Pt asymptomatic currently. Albuterol neb PRN. Plan for starting pulmicort at discharge home and f/u with PCP for asthma care.
[2018-02-18] MEDS: SIMETHICONE CHEW 80 MG TABLET PO PRN ×2 (03:50→09:54)
[2018-02-18] MEDS: ACETAMINOPHEN 500 MG TABLET PO SCH (05:51)
[2018-02-18] MEDS: oxyCODONE 5 MG TABLET PO PRN ×2 (06:33→09:54)
--- NOTE | 2018-02-18 09:40 | ANESTHESIA POST OP EVALUATION ---
Anesthesia Post Eval - Post Anesthesia Eval CV Function Including HR & BP: positive: Stable Pain Control: positive: Adequate Nausea & Vomiting: positive: Negative Mental Status: positive: Appropriate Anesthesia Complications: positive: None (Noreen was speaking with OB provider when I saw her, she stated she was doing well and had no concerns.)
[2018-02-18 09:49] VITALS: BP 118/78
[2018-02-18] MEDS: CELECOXIB 100 MG CAPSULE PO SCH (09:53)
[2018-02-18] MEDS: DOCUSATE SODIUM 100 MG CAPSULE PO SCH (09:54)
--- NOTE | 2018-02-18 10:00 | Discharge Plan ---
Discharge Plan Disposition: Home, Self Care Condition: Good Prescriptions: oxyCODONE [Roxicodone] 1 - 2 tab PO Q4HR PRN #20 tablet PRN Reason: Severe Pain Celecoxib [CeleBREX] 200 mg PO BID PRN #20 capsule PRN Reason: Pain Docusate Sodium [Dulcolax Stool Softener] 100 mg PO BID #60 capsule Fluticasone 44 Mcg [Flovent] 1 puffs INH BID #1 inhaler Diet: Regular Activity Restrictions: See written labor and delivery form Shower Restrictions: No Driving Restrictions: Yes (No driving while taking oxycodone) Weight Bearing: Full Weight No Smoking: If you smoke, Please STOP! Call for help. Follow-up with: Madison Garcia MD [Physician No Access] - 1 Week
--- NOTE | 2018-02-18 12:53 | DISCHARGE SUMMARY ---
Physician: Awa Sauceda MD DATE OF ADMISSION: 02/16/2018 DATE OF DISCHARGE: 02/18/2018 ADMISSION DIAGNOSES 1. Intrauterine at term. 2. Prior section x3. 3. Contractions - supervision of a high risk . 4. Asthma, persistent, moderate, chronic, with poor control. 5. Desires permanent sterilization. DISCHARGE DIAGNOSES 1. Status post sterilization. 2. Status post . 3. Asthma, persistent, moderate, chronic, with poor control. 4. Gestational thrombocytopenia. PROCEDURES: Repeat section with bilateral salpingectomy. CONSULTS: None. IMAGING: None. HOSPITAL COURSE: The patient was admitted due to spontaneous contractions, with three prior sections. She did reaffirm her desire for sterilization. Her surgery was performed and was very uncomplicated. The patient did have quite a bit of nausea and vomiting on postoperative day 0. This resolved by postoperative day 1. By the date of discharge, she was eating, ambulating, urinating and without difficulties. Her pain was under good control and her mood was good. She felt ready for discharge and did not have any questions. Asthma: The patient has chronic asthma that is worse in the spring and now it is better; however, she has been using her albuterol inhaler multiple times daily, chronically. We did discuss that this is not the goal, and that she does need a long-acting medication added. The goal would be to use the albuterol inhaler twice weekly or less frequently than that. She will followup with her PCP for this, and we will start her on Flovent. Likely gestational thrombocytopenia: The patient's platelets at discharge were 101. On admission, they were in the low 100s, but a little bit higher. In her second trimester check, they were 149. This is consistent with likely gestational thrombocytopenia. Repeat CBC may be considered. DISCHARGE EXAMINATION: The patient was afebrile with normal vital signs. She was smiling and cuddling her baby. She is alert, pleasant, in no apparent distress. ABDOMEN: Soft, nontender, nondistended. Fundus firm and 2 cm below the umbilicus. Her wound VAC was intact and there was no surrounding erythema. Incision was not visualized due to the presence of the VAC. EXTREMITIES: Lower extremities with 1+ edema to mid zimmerman, symmetric bilaterally. DISCHARGE MEDICATIONS 1. Oxycodone to use sparingly. 2. Celebrex b.i.d. 3. Continue vitamins. 4. Add Colace 100 mg b.i.d. 5. Continue the albuterol MDI. 6. Start Flovent 120 mg inhaled b.i.d. DISCHARGE CONDITION: Good. DISPOSITION: Home. OUTSTANDING LABS OR STUDIES: None. FOLLOWUP: The patient will follow up 1 week after her surgery for removal of the wound VAC, and an incision check. She will followup sooner p.r.n. problems. Schedule follow up with PCP for asthma eval. DISCHARGE EDUCATION: Routine and post-C section precautions were given. TD: 02/18/2018 10:35 TADEO
== END 2018-02-18 12:30 | disposition home or self-care (01) | DRG 765 ==
LOC: WFO 07:57 → FBP 07:58 → WFO 08:14 → FBP 08:15
PROVIDERS: ADMIT Obstetrics & Gynecology; ATTEND Obstetrics & Gynecology
PROC: 0UT70ZZ Resection of Bilateral Fallopian Tubes, Open Approach (ICD-10-PCS; 2018-02-16)
PROC: 10D00Z1 Extraction of Products of Conception, Low, Open Approach (ICD-10-PCS; principal; 2018-02-16 09:15)
DX: O34.219 Maternal care for unspecified type scar from previous cesarean delivery (principal); O99.12 Other diseases of the blood and blood-forming organs and certain disorders involving the immune mechanism complicating childbirth; N85.8 Other specified noninflammatory disorders of uterus; O99.52 Diseases of the respiratory system complicating childbirth; J45.909 Unspecified asthma, uncomplicated; D69.6 Thrombocytopenia, unspecified; O99.344 Other mental disorders complicating childbirth; F41.9 Anxiety disorder, unspecified; O99.62 Diseases of the digestive system complicating childbirth; K21.9 Gastro-esophageal reflux disease without esophagitis; Z30.2 Encounter for sterilization; Z37.0 Single live birth; Z3A.40 40 weeks gestation of pregnancy
CPT/HCPCS: 36415; 85025; 88302; 99213

== ENCOUNTER 2018-05-10 09:24 | Emergency (ER) | payer MEDICAID ==
[2018-05-10 10:52] LABS: BASOPHILS # (AUTO) 0.1 10^3/uL (0.0-0.1); BASOPHILS % (AUTO) 0.9 %; EOSINOPHILS # (AUTO) 0.2 10^3/uL (0.0-0.7); EOSINOPHILS % (AUTO) 3.1 %; HGB - HEMOGLOBIN 13.9 g/dL (12.0-16.0); LYMPHOCYTES % (AUTO) 17.3 %; MEAN CORPUSCULAR HEMOGLOBIN 28.1 pg (27.0-31.0); MEAN CORPUSCULAR VOLUME 82.5 fL (81.0-99.0); MEAN PLATELET VOLUME 9.4 fL (7.9-10.8); MONOCYTES # (AUTO) 0.5 10^3/uL (0.0-1.0); MONOCYTES % (AUTO) 8.4 %; NEUTROPHILS # (AUTO) 4.2 10^3/uL (1.5-6.6); NEUTROPHILS % (AUTO) 70.3 %; PLT - PLATELET COUNT 186 10^3/uL (130-450); RED BLOOD COUNT 4.93 10^6/uL (4.20-5.40); RED CELL DISTRIBUTION WIDTH 14.7 % (12.0-15.0); WHITE BLOOD COUNT 5.9 x10^3/uL (4.8-10.8)
--- NOTE | 2018-05-10 10:57 | ED Physician Documentation ---
History of Present Illness - Stated complaint Stated Complaint: FEMALE - Chief complaint Chief Complaint: General - Additonal information Additional information: hx from pt 22 f breast feeding denies preg s/p tubal to ED with blood diarrhea X approx 6 episodes since last night, bloody emesis this AM, and vag bleeding s injury no fever no travel possible bad food over thanksgiving no pain no fever hx hernia and GERD but not PUD Review of Systems Constitutional: denies: Fever, Chills Cardiac: denies: Chest pain / pressure Respiratory: denies: Dyspnea GI: reports: Nausea, Vomiting, Diarrhea, Hematemesis, Bloody / black stool. denies: Abdominal Pain : reports: Vaginal bleeding. denies: Discharge, Now EGA Endocrine: denies: Easy bruising / bleeding Immunocompromised: denies: Immunocompromised PD PAST MEDICAL HISTORY - Past Medical History Past Medical History: Yes Cardiovascular: None Respiratory: Asthma, Pneumonia Endocrine/Autoimmune: None GI: GERD, Ulcers COMPONENT ASSEMBLER: None : None HEENT: None Psych: None Musculoskeletal: None Derm: None - Past Surgical History Past Surgical History: Yes /COMPONENT ASSEMBLER: section - Present Medications Home Medications: Ambulatory Orders Medication Instructions Recorded Confirmed Albuterol 2.5 mg INH RTQ4H PRN neb 02/18/18 Calcium Carbonate [Tums (Calcium 1 tab PO Q6H PRN tablet 02/18/18 Carbonate 500mg)] Celecoxib [CeleBREX] 200 mg PO BID PRN #20 capsule 02/18/18 Docusate Sodium [Dulcolax Stool 100 mg PO BID #60 capsule 02/18/18 Softener] Fluticasone 44 Mcg [Flovent] 1 puffs INH BID #1 inhaler 02/18/18 oxyCODONE [Roxicodone] 1 - 2 tab PO Q4HR PRN #20 tablet 02/18/18 Azithromycin [Zithromax] 500 mg PO DAILY #6 tablet 05/10/18 Famotidine [Pepcid] 20 mg PO BID #28 tablet 05/10/18 - Allergies Allergies/Adverse Reactions: Allergies Allergy/AdvReac Type Severity Reaction Status Date / Time No Known Drug Allergies Allergy Verified 05/10/18 09:41 - Social History Does the pt smoke?: No Smoking Status: Never smoker Does the pt drink ETOH?: No Does the pt have substance abuse?: No - Immunizations Immunizations are current?: Yes Immunizations: TDAP >10years/unknown - POLST Patient has POLST: No PD ED PE NORMAL - Vitals Vital signs reviewed: Yes - HEENT HEENT: Atraumatic - Neck Neck: Supple, no meningeal sign - Cardiac Cardiac: RRR - Respiratory Respiratory: No respiratory distress, Clear bilaterally - Abdomen Abdomen: Soft, Non tender - Female Female : Other (external - small dark blood, no tear or bruise) - Rectal Rectal: Other (flaccid non bleeding hemorrhoid, no fissure, no mass on JULIO, no stool in vault but occult blood + QC passed) - Derm Derm: Normal color - Neuro Neuro: Alert and oriented X 3 Results - Vitals Vitals: Vital Signs - 24 hr 05/10/18 09:35 Temperature 36.3 C L Heart Rate 90 Respiratory 18 Rate Blood Pressure 148/90 H O2 Saturation 100 Oxygen O2 Source Room air - Labs Labs: Laboratory Tests 05/10/18 05/10/18 05/10/18 10:40 10:40 11:52 WBC 5.9 RBC 4.93 Hgb 13.9 Hct 40.7 MCV 82.5 MCH 28.1 MCHC 34.0 RDW 14.7 Plt Count 186 MPV 9.4 Neut # (Auto) 4.2 Lymph # (Auto) 1.0 L Saunders # (Auto) 0.5 Eos # (Auto) 0.2 Baso # (Auto) 0.1 Absolute Nucleated RBC 0.00 Nucleated RBC % 0.1 Serum HCG, Qual NEGATIVE Urine Color YELLOW Urine Clarity CLEAR Urine pH 5.5 Ur Specific [place] >=1.030 H Urine Protein NEGATIVE Urine Glucose (UA) NEGATIVE Urine Ketones NEGATIVE Urine Occult Blood MODERATE H Urine Nitrite NEGATIVE Urine Bilirubin NEGATIVE Urine Urobilinogen 0.2 (NORMAL) Ur Leukocyte Esterase NEGATIVE Urine RBC 0-5 Urine WBC 0-3 Ur Squamous Epith Cells RARE Squamous Urine Bacteria Moderate H Ur Microscopic Review INDICATED Urine Culture Comments INDICATED Urine HCG, Qual NEGATIVE PD MEDICAL DECISION MAKING - ED course ED course: nl CBC bloody vomit and diarrhea possible food poisoning hx GERD hemodyn stable will dc with pepcid and for hem gastritis and zithro for possible food poisoning pending cx results zofran interacts with zmax and phenergan not safe in breast feeding so no antiemetic vag bleeding non specific, not preg, no trauma, no heavy, is PP and breast feeding doubt UTI - no leuk est nitrates - wait on cx Departure - Departure Disposition: 01 Home, Self Care Clinical Impression: GI bleeding Qualifiers: GI bleed type/associated pathology: unspecified gastrointestinal hemorrhage type Qualified Code(s): K92.2 - Gastrointestinal hemorrhage, unspecified Condition: Good Instructions: ED Bleed UGI Stable, ED Food Poison Or Gastroenteritis Follow-Up: Jazzmine Resendez ARNP [Primary Care Provider] - Prescriptions: Azithromycin [Zithromax] 500 mg PO DAILY #6 tablet Famotidine [Pepcid] 20 mg PO BID #28 tablet Comments: Your vital signs are fine and your blood count is normal. The nausea vomiting and bloody diarrhea after Thanksgiving could be food poisoning. We are waiting on the stool culture results but in the mean time I have prescribed zithromax which is safe in breast feeding and would treat most bacterial causes of food poisoning. Also pepcid to decrease stomach inflammation and is safe in Please follow up with your PMD in the next two days for a repeat blood count and also with the surgeons to discuss getting a scope of your stomach and bowels Return sooner if worse
[2018-05-10] MEDS ORDERED: FAMOTIDINE 20 MG TABLET PO STA (11:00)
[2018-05-10 11:37] LABS: HCG,QUALITATIVE BLOOD NEGATIVE
[2018-05-10 12:05] LABS: BILIRUBIN,URINE NEGATIVE (NEGATIVE); GLUCOSE, URINE (UA) NEGATIVE (NEGATIVE); KETONES,URINE (UA) NEGATIVE (NEGATIVE); LEUKOCYTE ESTERASE, URINE NEGATIVE (NEGATIVE); NITRITE,URINE NEGATIVE (NEGATIVE); OCCULT BLOOD,URINE MODERATE (NEGATIVE); PH,URINE 5.5 PH (5.0-7.5); PROTEIN,URINE NEGATIVE (NEGATIVE); UROBILINOGEN,URINE 0.2 (NORMAL) E.U./dL (NORMAL)
[2018-05-10 12:13] LABS: CLARITY,URINE CLEAR (CLEAR); HCG UR QUAL NEGATIVE
[2018-05-10 12:19] LABS: RBC,URINE 0-5 /HPF (0-5)
[2018-05-10 12:20] LABS: BACTERIA,URINE Moderate /HPF (None Seen); SQUAMOUS EPITHELIAL CELL,UR RARE Squamous (<= Few)
[2018-05-10 13:05] VITALS: BP 147/97
== END 2018-05-10 13:06 | disposition home or self-care (01) ==
LOC: ED 09:24
DX: K92.2 Gastrointestinal hemorrhage, unspecified (principal)
CPT/HCPCS: 36415; 81001; 81025; 84703; 85025; 87086; 99283; A9270; 81003

== ENCOUNTER 2018-07-06 17:52 | Emergency (ER) | payer MEDICAID ==
--- NOTE | 2018-07-06 18:40 | XRAY Report ---
Reason: congestion, shortness of breath Procedure Date: 07/06/2018 Accession Number: [id number] / [id number] Procedure: XR - Chest 2 View X-Ray CPT Code: 79336 FULL RESULT: EXAM: CHEST RADIOGRAPHY EXAM DATE: 07/06/2018 06:29 PM. CLINICAL HISTORY: Congestion, shortness of breath. COMPARISON: CHEST 2 VIEW PA/LAT 09/25/2016 10:39 AM. TECHNIQUE: 2 views. FINDINGS: Lungs/Pleura: No focal opacities evident. No pleural effusion. No pneumothorax. Normal volumes. Mediastinum: Heart and mediastinal contours are unremarkable. Other: None. IMPRESSION: Normal 2-view chest radiography. RADIA
[2018-07-06] MEDS ORDERED: predniSONE 20 MG TABLET PO STA (19:40)
[2018-07-06] MEDS ORDERED: AMOXICILLIN 250 MG CAPSULE PO STA (19:40)
[2018-07-06] MEDS ORDERED: IPRATROPIUM/ALBUTEROL 3 ML NEB INH STA (19:40)
--- NOTE | 2018-07-06 19:43 | ED Physician Documentation ---
PD HPI PED ILLNESS - Stated complaint Stated Complaint: SOA/CONGEST/COUGH - Chief complaint Chief Complaint: Resp - History obtained from History obtained from: Patient - History of Present Illness Timing - onset: Other (This is a 22-year-old woman with history of asthma who is been having chest congestion for the last 2 months and is running out of her early. She having frequent attacks especially after exertion where she has to stop and rest due to the wheezing. She is a productive cough and left ear pain. No fevers or chills.) Review of Systems Constitutional: denies: Fever, Chills Ears: reports: Ear pain. denies: Loss of hearing Nose: denies: Rhinorrhea / runny nose Throat: denies: Sore throat Cardiac: denies: Chest pain / pressure Respiratory: reports: Dyspnea, Cough PD PAST MEDICAL HISTORY - Past Medical History Cardiovascular: None Respiratory: Asthma, Pneumonia Endocrine/Autoimmune: None GI: GERD, Ulcers AUTO HIKER: None : None HEENT: None Psych: None Musculoskeletal: None Derm: None - Past Surgical History Past Surgical History: Yes /AUTO HIKER: section - Present Medications Home Medications: Ambulatory Orders Medication Instructions Recorded Confirmed Albuterol 2.5 mg INH RTQ4H PRN neb 02/18/18 Calcium Carbonate [Tums (Calcium 1 tab PO Q6H PRN tablet 02/18/18 Carbonate 500mg)] Celecoxib [CeleBREX] 200 mg PO BID PRN #20 capsule 02/18/18 Docusate Sodium [Dulcolax Stool 100 mg PO BID #60 capsule 02/18/18 Softener] Fluticasone 44 Mcg [Flovent] 1 puffs INH BID #1 inhaler 02/18/18 oxyCODONE [Roxicodone] 1 - 2 tab PO Q4HR PRN #20 tablet 02/18/18 Azithromycin [Zithromax] 500 mg PO DAILY #6 tablet 05/10/18 Famotidine [Pepcid] 20 mg PO BID #28 tablet 05/10/18 Albuterol Sulf [Ventolin Hfa 1 - 2 puffs INH Q4HR PRN #1 inhaler 07/06/18 Inhaler] Amoxicillin 500 mg PO TID #30 capsule 07/06/18 predniSONE [Deltasone] 20 mg PO [id number] #21 tab 07/06/18 - Allergies Allergies/Adverse Reactions: Allergies Allergy/AdvReac Type Severity Reaction Status Date / Time No Known Drug Allergies Allergy Verified 07/06/18 18:06 - Social History Does the pt smoke?: No Smoking Status: Never smoker Does the pt drink ETOH?: No Does the pt have substance abuse?: No - Immunizations Immunizations are current?: Yes Immunizations: TDAP >10years/unknown - POLST Patient has POLST: No PD ED PE NORMAL - Vitals Vital signs reviewed: Yes - General General: Alert and oriented X 3, No acute distress - HEENT HEENT: Other (LOM) - Neck Neck: Supple, no meningeal sign, No bony TTP - Cardiac Cardiac: RRR, No murmur - Respiratory Respiratory: Other (Expiratory wheezes without throughout with good air motion and nonlabored) - Abdomen Abdomen: Soft, Non tender - Extremities Extremities: No edema, No calf tenderness / cord - Neuro Neuro: Alert and oriented X 3, Normal speech Results - Vitals Vitals: Vital Signs - 24 hr 07/06/18 18:01 Temperature 36.1 C L Heart Rate 86 Respiratory 18 Rate Blood Pressure 133/82 H O2 Saturation 97 Oxygen O2 Source Room air Departure - Departure Disposition: Home, Self Care Clinical Impression: Asthma LOM (left otitis media) Qualifiers: Otitis media type: suppurative Chronicity: acute Recurrence: not specified as recurrent Spontaneous tympanic membrane rupture: without spontaneous rupture Qualified Code(s): H66.002 - Acute suppurative otitis media without spontaneous rupture of ear drum, left ear Condition: Stable Record reviewed to determine appropriate education?: Yes Instructions: ED Bronchitis Asthmatic, ED Otitis Media Acute Adult Prescriptions: Albuterol Sulf [Ventolin Hfa Inhaler] 1 - 2 puffs INH Q4HR PRN #1 inhaler PRN Reason: Shortness Of Air/Wheezing Amoxicillin 500 mg PO TID #30 capsule predniSONE [Deltasone] 20 mg PO [id number] #21 tab Comments: Call your doctor to arrange a follow-up appointment, make the next available appointment. In the interim, return anytime if worse or if new symptoms develop. Your blood pressure was elevated today on check into the emergency department. This does not mean that you have hypertension, it is a common phenomenon to come to the emergency department and have elevated blood pressure. I recommend that you see your primary care physician within the week to have it rechecked when you are feeling better.
[2018-07-06 20:13] VITALS: BP 141/107
== END 2018-07-06 20:13 | disposition home or self-care (01) ==
LOC: ED 17:52
DX: J45.909 Unspecified asthma, uncomplicated (principal); H66.002 Acute suppurative otitis media without spontaneous rupture of ear drum, left ear; R03.0 Elevated blood-pressure reading, without diagnosis of hypertension
CPT/HCPCS: 71046; 94640; 94664; 99283; 99284; A9270; J7512

== ENCOUNTER 2018-08-25 17:29 | Emergency (ER) | payer MEDICAID ==
[2018-08-25] MEDS ORDERED: ALBUTEROL NEB 2.5 MG/3 ML INH STA (18:10)
--- NOTE | 2018-08-25 18:22 | ED Physician Documentation ---
PD HPI URI - Stated complaint Stated Complaint: ASTMATIC/DIFFICULTY BREATHING - Chief complaint Chief Complaint: Resp - History obtained from History obtained from: Patient - History of Present Illness Timing - onset: Today (23-year-old with history of asthma. Uses a urine rescue inhaler and nebulizer, no baseline treatments. 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 LEATHER TRIMMER: None : None HEENT: None Psych: None Musculoskeletal: None Derm: None - Past Surgical History Past Surgical History: Yes /HAND LEATHER TRIMMER: section, Tubal ligation - Present Medications Home Medications: Ambulatory Orders Medication Instructions Recorded Confirmed Albuterol 2.5 mg INH RTQ4H PRN neb 02/18/18 Calcium Carbonate [Tums (Calcium 1 tab PO Q6H PRN tablet 02/18/18 Carbonate 500mg)] Celecoxib [CeleBREX] 200 mg PO BID PRN #20 capsule 02/18/18 Docusate Sodium [Dulcolax Stool 100 mg PO BID #60 capsule 02/18/18 Softener] Fluticasone 44 Mcg [Flovent] 1 puffs INH BID #1 inhaler 02/18/18 oxyCODONE [Roxicodone] 1 - 2 tab PO Q4HR PRN #20 tablet 02/18/18 Azithromycin [Zithromax] 500 mg PO DAILY #6 tablet 05/10/18 Famotidine [Pepcid] 20 mg PO BID #28 tablet 05/10/18 Albuterol Sulf [Ventolin Hfa 1 - 2 puffs INH Q4HR PRN #1 inhaler 07/06/18 Inhaler] Amoxicillin 500 mg PO TID #30 capsule 07/06/18 predniSONE [Deltasone] 20 mg PO [id number] #21 tab 07/06/18 - Allergies Allergies/Adverse Reactions: Allergies Allergy/AdvReac Type Severity Reaction Status Date / Time No Known Drug Allergies Allergy Verified 08/25/18 17:45 - Social History Does the pt smoke?: No Smoking Status: Never smoker Does the pt drink ETOH?: No Does the pt have substance abuse?: No - Immunizations Immunizations are current?: Yes Immunizations: TDAP >10years/unknown - POLST Patient has POLST: No PD ED PE NORMAL - Vitals Vital signs reviewed: Yes - General General: Alert and oriented X 3, No acute distress - HEENT HEENT: Ears normal, Pharynx benign - Neck Neck: Supple, no meningeal sign, No bony TTP - Cardiac Cardiac: RRR, No murmur - Respiratory Respiratory: No respiratory distress, Other (Speaking full sentences, mild expiratory wheezes with good air motion.) - Derm Derm: No rash - Neuro Neuro: Alert and oriented X 3, Normal speech Results - Vitals Vitals: Vital Signs - 24 hr 08/25/18 08/25/18 17:41 18:20 Temperature 36.6 C Heart Rate 100 102 H Respiratory 22 18 Rate Blood Pressure 144/96 H O2 Saturation 98 Oxygen O2 Source Room air PD MEDICAL DECISION MAKING - ED course ED course: Lungs were clear after the administration of a single neb here and she felt much better. She was administered 10 mg of dexamethasone orally. Departure - Departure Disposition: Home, Self Care Clinical Impression: Asthma Condition: Stable Record reviewed to determine appropriate education?: Yes Instructions: ED Bronchitis Asthmatic Comments: Call your doctor to arrange a follow-up appointment, make the next available appointment. In the interim, return anytime if worse or if new symptoms develop . Your blood pressure was elevated today on check into the emergency department. This does not mean that you have hypertension, it is a common phenomenon to come to the emergency department and have elevated blood pressure. I recommend that you see your primary care physician within the week to have it rechecked when you are feeling better.
[2018-08-25] MEDS ORDERED: DEXAMETHASONE 10 MG/ML VIAL PO STA (18:43)
[2018-08-25] MEDS ORDERED: CHERRY SYRUP 10 ML UDC PO ONE (18:50)
[2018-08-25 18:51] VITALS: BP 136/78
== END 2018-08-25 18:56 | disposition home or self-care (01) ==
LOC: ED 17:29
DX: J45.909 Unspecified asthma, uncomplicated (principal); R03.0 Elevated blood-pressure reading, without diagnosis of hypertension
CPT/HCPCS: 94640; 99283; A9270

== ENCOUNTER 2019-05-27 08:04 | Outpatient (CLI) | payer MEDICAID ==
[2019-05-27 09:12] LABS: ALBUMIN/GLOBULIN RATIO 1.3 (1.0-2.2); ALKALINE PHOSPHATASE 76 IU/L (42-121); ALT ALANINE AMINOTRANSFERASE 18 IU/L (10-60); AST ASPARTATE AMINOTRANSFERASE 17 IU/L (10-42); BILIRUBIN,TOTAL 0.8 mg/dL (0.2-1.0); BUN - BLOOD UREA NITROGEN 12 mg/dL (6-20); CARBON DIOXIDE - CO2 27 mmol/L (21-32); CHLORIDE 104 mmol/L (101-111); CHOLESTEROL 145 mg/dL; CREATININE 0.8 mg/dL (0.4-1.0); GFR - MDRD 89 (>89); GLUCOSE 105 mg/dL (70-100); HDL CHOLESTEROL 29 mg/dL; LDL CHOLESTEROL,CALCULATED 91 mg/dL; LDL/HDL RATIO 3.1 (<4.4); SODIUM 137 mmol/L (135-145); VLDL CHOLESTEROL 25 mg/dL
[2019-05-27 09:36] LABS: T4 (THYROXINE) 7.03 ug/dL (6.09-12.23)
[2019-05-27 09:40] LABS: THYROID STIMULATING HORMONE 1.13 uIU/mL (0.34-5.60)
== END 2019-05-27 08:05 | disposition home or self-care (01) ==
LOC: LAB 08:04
PROVIDERS: ATTEND Nurse Practitioner Obstetrics & Gynecology
DX: E66.01 Morbid (severe) obesity due to excess calories (principal); Z71.89 Other specified counseling
CPT/HCPCS: 36415; 80053; 80061; 82951; 83721; 84436; 84443

== ENCOUNTER 2019-08-07 10:15 | Emergency (ER) | payer MEDICAID ==
[2019-08-07 10:30] VITALS: BP 129/89
--- NOTE | 2019-08-07 10:50 | ED Physician Documentation ---
PD HPI HEENT - Stated complaint Stated Complaint: MOUTH PX - Chief complaint Chief Complaint: Heent - History obtained from History obtained from: Patient - History of Present Illness Timing - onset: How many days ago (3) Timing - duration: Days (3) Timing - details: Gradual onset, Still present, Still present in ED Location: Tooth Improves: Nothing Worsens: Other (heat and touching) Associated symptoms: No: Fever, Congestion, Rhinorrhea, Facial swelling, Cough Similar symptoms before: Has not had sx before Recently seen: Not recently seen - Additional information Additional information: Previously well 24-year-old female has had a right upper tooth bothering her for the past 3 days. The pain is progressively worsened and she is not able to eat on that side and has extreme heat sensitivity. She has an appointment to see the dentist at the end of the week. 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 : None HEENT: None Psych: None Musculoskeletal: None Derm: None - Past Surgical History Past Surgical History: Yes /JUMBO OPERATOR: section, Tubal ligation - Present Medications Home Medications: Ambulatory Orders Medication Instructions Recorded Confirmed Albuterol 2.5 mg INH RTQ4H PRN neb 02/18/18 Calcium Carbonate [Tums (Calcium 1 tab PO Q6H PRN tablet 02/18/18 Carbonate 500mg)] Celecoxib [CeleBREX] 200 mg PO BID PRN #20 capsule 02/18/18 Docusate Sodium [Dulcolax Stool 100 mg PO BID #60 capsule 02/18/18 Softener] Fluticasone 44 Mcg [Flovent] 1 puffs INH BID #1 inhaler 02/18/18 oxyCODONE [Roxicodone] 1 - 2 tab PO Q4HR PRN #20 tablet 02/18/18 Azithromycin [Zithromax] 500 mg PO DAILY #6 tablet 05/10/18 Famotidine [Pepcid] 20 mg PO BID #28 tablet 05/10/18 Albuterol Sulf [Ventolin Hfa 1 - 2 puffs INH Q4HR PRN #1 inhaler 07/06/18 Inhaler] Amoxicillin 500 mg PO TID #30 capsule 07/06/18 predniSONE [Deltasone] 20 mg PO [id number] #21 tab 07/06/18 Amoxicillin 875 mg PO BID #14 tablet 08/07/19 Hydrocodone/Acetaminophen 1 - 2 each PO Q6H PRN #14 tablet 08/07/19 [Hydrocodon-Acetaminophen 5-325] - Allergies Allergies/Adverse Reactions: Allergies Allergy/AdvReac Type Severity Reaction Status Date / Time No Known Drug Allergies Allergy Verified 08/07/19 10:29 - Social History Does the pt smoke?: No Smoking Status: Never smoker Does the pt drink ETOH?: No Does the pt have substance abuse?: No - Immunizations Immunizations are current?: Yes Immunizations: TDAP >10years/unknown - POLST Patient has POLST: No PD ED PE NORMAL - Vitals Vital signs reviewed: Yes (hypertensive ) - General General: No acute distress, Well developed/nourished - HEENT HEENT: Atraumatic, PERRL, EOMI, Other (The teeth do not appear carious the the tooth lateral to the eye tooth is tender to touch there is no crack in it there is no swelling or fluctuance to the gingival buccal fold.) - Neck Neck: Supple, no meningeal sign, No bony TTP - Respiratory Respiratory: No respiratory distress - Derm Derm: Normal color, Warm and dry, No rash - Extremities Extremities: No deformity, No edema - Neuro Neuro: Alert and oriented X 3, jack spooler tender 2-12 intact, No motor deficit, No sensory deficit, Normal speech Eye Opening: Spontaneous Motor: Obeys Commands Verbal: Oriented GCS Score: 15 - Psych Psych: Normal mood, Normal affect Results - Vitals Vitals: Vital Signs - 24 hr 08/07/19 10:19 Temperature 36.2 C L Heart Rate 85 Respiratory 16 Rate Blood Pressure 129/89 H O2 Saturation 98 Oxygen O2 Source Room air PD MEDICAL DECISION MAKING - ED course Complexity details: considered differential, d/w patient ED course: 24-year-old female with a bad right upper toothDoes not appear to have any drainable abscess. We will place her on some amoxicillin and she will follow-up with her dentist within the week. Departure - Departure Disposition: 01 Home, Self Care Clinical Impression: Pain, dental Condition: Stable Instructions: ED Tooth Pain Follow-Up: Norma Downey ARNP [Primary Care Provider] - Prescriptions: Amoxicillin 875 mg PO BID #14 tablet Hydrocodone/Acetaminophen [Hydrocodon-Acetaminophen 5-325] 1 - 2 each PO Q6H PRN #14 tablet PRN Reason: pain
== END 2019-08-07 10:58 | disposition home or self-care (01) ==
LOC: ED 10:15
DX: K08.89 Other specified disorders of teeth and supporting structures (principal)
CPT/HCPCS: 99282; 99284

== ENCOUNTER 2020-06-22 18:58 | Emergency (ER) | payer MEDICAID ==
[2020-06-22] MEDS ORDERED: PENICILLIN VK 250 MG TABLET PO STA (20:36)
[2020-06-22] MEDS ORDERED: HYDROcod/ACETAM 5/325 MG TABLET PO STA (20:36)
--- NOTE | 2020-06-22 20:39 | ED Physician Documentation ---
History of Present Illness - Stated complaint Stated Complaint: RIGHT SIDED FACIAL PX - Chief complaint Chief Complaint: Heent - History obtained from History obtained from: Patient - History of Present Illness Timing: Today Pain level max: 7 Pain level now: 7 - Additonal information Additional information: 24-year-old female has an impacted right lower wisdom tooth. She states that she is scheduled to have this extracted next week. Increased pain today. No fevers. No vomiting. No face swelling. Nothing makes it better. Worse with eating and drinking. 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: section, Tubal ligation - Present Medications Home Medications: Ambulatory Orders Medication Instructions Recorded Confirmed Albuterol 2.5 mg INH RTQ4H PRN neb 02/18/18 Calcium Carbonate [Tums (Calcium 1 tab PO Q6H PRN tablet 02/18/18 Carbonate 500mg)] Celecoxib [CeleBREX] 200 mg PO BID PRN #20 capsule 02/18/18 Docusate Sodium [Dulcolax Stool 100 mg PO BID #60 capsule 02/18/18 Softener] Fluticasone 44 Mcg [Flovent] 1 puffs INH BID #1 inhaler 02/18/18 oxyCODONE [Roxicodone] 1 - 2 tab PO Q4HR PRN #20 tablet 02/18/18 Azithromycin [Zithromax] 500 mg PO DAILY #6 tablet 05/10/18 Famotidine [Pepcid] 20 mg PO BID #28 tablet 05/10/18 Albuterol Sulf [Ventolin Hfa 1 - 2 puffs INH Q4HR PRN #1 inhaler 07/06/18 Inhaler] Amoxicillin 500 mg PO TID #30 capsule 07/06/18 predniSONE [Deltasone] 20 mg PO [id number] #21 tab 07/06/18 Amoxicillin 875 mg PO BID #14 tablet 08/07/19 Hydrocodone/Acetaminophen 1 - 2 each PO Q6H PRN #14 tablet 08/07/19 [Hydrocodon-Acetaminophen 5-325] HYDROcod/ACETAM 5/325 [[place] 5/325] 1 - 2 ea PO Q6H PRN #14 tablet 06/22/20 Penicillin V Potassium 500 mg PO Q6HR #40 tablet 06/22/20 - Allergies Allergies/Adverse Reactions: Allergies Allergy/AdvReac Type Severity Reaction Status Date / Time No Known Drug Allergies Allergy Verified 08/07/19 10:29 - Social History Does the pt smoke?: No Smoking Status: Never smoker Does the pt drink ETOH?: No Does the pt have substance abuse?: No - Immunizations Immunizations are current?: Yes Immunizations: TDAP >10years/unknown - POLST Patient has POLST: No PD ED PE NORMAL - Vitals Vital signs reviewed: Yes - General General: Alert and oriented X 3, No acute distress - HEENT HEENT: Moist mucous membranes, Other (Right lower wisdom tooth partially erupted, large open area appears decayed inside.) - Neck Neck: Supple, no meningeal sign - Cardiac Cardiac: RRR - Respiratory Respiratory: No respiratory distress, Clear bilaterally - Derm Derm: Warm and dry - Neuro Neuro: Alert and oriented X 3 - Psych Psych: Normal mood, Normal affect Results - Vitals Vitals: Vital Signs - 24 hr 06/22/20 06/22/20 19:01 20:44 Temperature 37.0 C 36.6 C Heart Rate 82 80 Respiratory 18 18 Rate Blood Pressure 129/90 H 134/90 H O2 Saturation 99 100 Oxygen O2 Source Room air PD MEDICAL DECISION MAKING - ED course Complexity details: considered differential, d/w patient ED course: Cavit was placed over the open tooth. We will place on antibiotics and prescribed medication for pain for home. No evidence of abscess. No drainable abscess. No facial swelling. Patient will follow up with her oral surgeon on Thursday or Thursday. Patient counseled regarding signs and symptoms for which I believe and urgent re-evaluation would be necessary. Patient with good underst anding of and agreement to plan and is comfortable going home at this time This document was made in part using voice recognition software. While efforts are made to proofread this document, sound alike and grammatical errors may occur. Departure - Departure Disposition: 01 Home, Self Care Clinical Impression: Dental caries, Pain, dental Condition: Good Instructions: ED Tooth Pain, ED Cavity Dental Follow-Up: Norma Downey ARNP [Primary Care Provider] - Prescriptions: Penicillin V Potassium 500 mg PO Q6HR #40 tablet HYDROcod/ACETAM 5/325 [[place] 5/325] 1 - 2 ea PO Q6H PRN #14 tablet PRN Reason: Pain Comments: Continue the antibiotics at home. Follow-up with your dentist on Thursday as scheduled. The [place] should help the pain. Return if you worsen. Do not drink alcohol or drive while on narcotic pain medicine. Note that many narcotic pain relievers also contain tylenol/acetaminophen. Please ensure that your total dose of acetaminophen from all sources does not exceed 3 grams (3000mg) per day. You may constipated on this medication, take a stool softener such as "Colace" twice a day while you are on it. Also recommend a [id number] laxative such as senna or MiraLAX any day that you do not have a bowel movement. If you received narcotic pain medication in the emergency department, do not drive or operate machinery for the next 24 hours. Discharge Date/Time: 06/22/20 20:48
[2020-06-22 20:45] VITALS: BP 134/90
--- OUTSIDE RECORDS SUMMARY | 2020-06-27 01:47 | EXTERNAL MEDICAL SUMMARY RPT | Continuity of Care Document ---
:1995 Demographics Phone Unavailable Preferred Language Unknown Marital Status Unknown Islam Affiliation Unknown Race Unknown Ethnic Group Unknown Author Organization [facility] Address [address] [place] [address] Phone Care Team Providers Name Role Phone Nicholas Unavailable Unavailable Dipti Unavailable Unavailable Fly Unavailable Unavailable Nasreen Unavailable Unavailable Problems date description facility 2012-11-02 09:56 ESOPHAGEAL REFLUX [facility] 2012-11-12 08:00 [address]AL DIS [facility] 2013-07-04 13:17 ACUTE PHARYNGITIS [facility] 2013-08-02 11:31 PNEUMONIA, ORGANISM NOS [facility] 2013-08-02 11:31 ASTHMA, UNSPECIFIED [facility] 2013-08-02 11:31 COUGH [facility] 2013-08-31 13:56 VIRAL INFECTION NOS [facility] 2013-10-21 10:46 ACUTE BRONCHITIS [facility] 2014-03-24 14:12 OTHER SPECIFIED [facility] SCREENING 2014-07-13 10:35 OTHER SPECIFIED [facility] SCREENING 2014-09-13 08:00 SUPERVIS OTH NORMAL PREG [facility] 2014-09-13 08:00 SCREEN-STREPTOCOCCUS B [facility] 2014-10-03 11:19 PREV DELIVERY, ANTEPARTUM [facility] COND OR COMPLIC 2014-10-03 11:19 PRE-PROCEDURAL LABORATORY [facility] EXAMINATION Allergies date description facility ADHESIVE \T\ TAPE [facility] [place] [facility] [place] PREGABALIN [facility] [place] HYDROGEN PEROXIDE [facility] LATEX [facility] [place] SHELLFISH [facility] No Known Drug Allergies [facility] NO ALLERGY INFORMATION AVAILABLE [facility] NO KNOWN ALLERGIES [facility] No Known Drug Allergies [facility] No Known Drug Allergies [facility] No Known Drug Allergies [facility] No Known Drug Allergies [facility] Social History date description facility [phone]
== END 2020-06-22 20:48 | disposition home or self-care (01) ==
LOC: ED 18:58
DX: K02.9 Dental caries, unspecified (principal); K08.89 Other specified disorders of teeth and supporting structures; K00.6 Disturbances in tooth eruption
CPT/HCPCS: 99282; 99284; A9270

== ENCOUNTER 2021-07-02 14:33 | Emergency (ER) | payer MEDICAID ==
[2021-07-02 15:23] VITALS: BP 130/93
[2021-07-02] MEDS ORDERED: KETOROLAC 15 MG/ML VIAL IVP STA (15:23)
[2021-07-02] MEDS ORDERED: SODIUM CHLORIDE 0.9% 1,000 ML IV STA (15:23)
[2021-07-02] MEDS ORDERED: ONDANSETRON 4 MG/2 ML VIAL IVP STA (15:23)
--- NOTE | 2021-07-02 15:25 | ED Physician Documentation ---
PD HPI ABD PAIN - Stated complaint Stated Complaint: VOMITTED BLOOD, VAG BLOODY DISCHARGE, C+ - Chief complaint Chief Complaint: Abd Pain - History obtained from History obtained from: Patient - Additional information Additional information: 25-year-old woman with history of 4 C-sections and a tubal ligation and IBS. She is otherwise healthy. She came down with COVID as did her family. She was symptomatic for about 3 days and got better. Finished up quarantine yesterday but for the last 3 days has had central abdominal cramping associated with nausea and vomiting with some trace blood in the vomit. Her bowel movements have been "wanting" to be like diarrhea, but because of decreased solid p.o. intake she is improving as much. She is still drinking plenty. Denies fevers. She has some brownish vaginal discharge. Review of Systems Ten Systems: 10 systems reviewed and negative Constitutional: reports: Chills, Myalgias, Fatigue Respiratory: denies: Dyspnea, Cough GI: reports: Abdominal Pain, Nausea, Vomiting. 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 PSYCHOLOGIST: section, Tubal ligation - Present Medications Home Medications: Ambulatory Orders Medication Instructions Recorded Confirmed Albuterol 2.5 mg INH RTQ4H PRN neb 02/18/18 Calcium Carbonate [Tums (Calcium 1 tab PO Q6H PRN tablet 02/18/18 Carbonate 500mg)] Celecoxib [CeleBREX] 200 mg PO BID PRN #20 capsule 02/18/18 Docusate Sodium [Dulcolax Stool 100 mg PO BID #60 capsule 02/18/18 Softener] Fluticasone 44 Mcg [Flovent] 1 puffs INH BID #1 inhaler 02/18/18 oxyCODONE [Roxicodone] 1 - 2 tab PO Q4HR PRN #20 tablet 02/18/18 Azithromycin [Zithromax] 500 mg PO DAILY #6 tablet 05/10/18 Famotidine [Pepcid] 20 mg PO BID #28 tablet 11/26/18 Albuterol Sulf [Ventolin Hfa 1 - 2 puffs INH Q4HR PRN #1 inhaler 07/06/18 Inhaler] Amoxicillin 500 mg PO TID #30 capsule 07/06/18 predniSONE [Deltasone] 20 mg PO [id number] #21 tab 07/06/18 Amoxicillin 875 mg PO BID #14 tablet 08/07/19 Hydrocodone/Acetaminophen 1 - 2 each PO Q6H PRN #14 tablet 08/07/19 [Hydrocodon-Acetaminophen 5-325] HYDROcod/ACETAM 5/325 [[place] 5/325] 1 - 2 ea PO Q6H PRN #14 tablet 06/22/20 Penicillin V Potassium 500 mg PO Q6HR #40 tablet 06/22/20 Dicyclomine [Bentyl] 1 - 2 tab PO QID PRN #20 cap 07/02/21 Meloxicam [Mobic] 7.5 mg PO BID PRN #10 tablet 07/02/21 Ondansetron Odt [Zofran] 4 mg TL Q6H PRN #10 tablet 07/02/21 - Allergies Allergies/Adverse Reactions: Allergies Allergy/AdvReac Type Severity Reaction Status Date / Time No Known Drug Allergies Allergy Verified 07/02/21 15:23 - Social History Does the pt smoke?: No Smoking Status: Never smoker Does the pt drink ETOH?: No Does the pt have substance abuse?: No - Immunizations Immunizations are current?: Yes Immunizations: TDAP >10years/unknown - POLST Patient has POLST: No PD ED PE NORMAL - Vitals Vital signs reviewed: Yes - General General: Alert and oriented X 3, No acute distress - Cardiac Cardiac: RRR, No murmur - Respiratory Respiratory: No respiratory distress, Clear bilaterally - Abdomen Abdomen: Normal bowel sounds, Soft, Non tender - Back Back: No CVA TTP - Derm Derm: Normal color, Warm and dry - Extremities Extremities: No edema, No calf tenderness / cord - Neuro Neuro: Alert and oriented X 3, Normal speech Results - Vitals Vitals: Vital Signs - 24 hr 07/02/21 15:16 Temperature 36.9 C Heart Rate 72 Respiratory 16 Rate Blood Pressure 130/93 H O2 Saturation 98 Oxygen O2 Source Room air - Labs Labs: Laboratory Tests 07/02/21 07/02/21 07/02/21 15:28 15:30 15:30 WBC 4.0 L RBC 5.08 Hgb 14.7 Hct 43.7 MCV 86.0 MCH 28.9 MCHC 33.6 RDW 12.5 Plt Count 141 MPV 11.9 H Neut # (Auto) 1.9 Lymph # (Auto) 1.5 [place] # (Auto) 0.5 Eos # (Auto) 0.0 Baso # (Auto) 0.0 Absolute Nucleated RBC 0.00 Nucleated RBC % 0.0 Sodium 137 Potassium 3.9 Chloride 102 Carbon Dioxide 25 Anion Gap 10.0 BUN 12 Creatinine 0.8 Estimated GFR (MDRD) 87 L Glucose 93 Calcium 9.6 Total Bilirubin 0.6 AST 31 ALT 57 Alkaline Phosphatase 67 Total Protein 7.8 Albumin 4.4 Globulin 3.4 Albumin/Globulin Ratio 1.3 Lipase 30 Urine Color YELLOW Urine Clarity CLEAR Urine pH 6.0 Ur Specific [place] 1.025 Urine Protein NEGATIVE Urine Glucose (UA) NEGATIVE Urine Ketones NEGATIVE Urine Occult Blood NEGATIVE Urine Nitrite NEGATIVE Urine Bilirubin NEGATIVE Urine Urobilinogen 0.2 (NORMAL) Ur Leukocyte Esterase NEGATIVE Ur Microscopic Review NOT INDICATED Urine Culture Comments NOT INDICATED Urine HCG, Qual NEGATIVE PD MEDICAL DECISION MAKING - ED course ED course: 25-year-old woman with recent COVID now presents with what sounds like a viral illness with vomiting and abdominal cramps. She is not and has a fairly benign exam. She was feeling much better after meds here. Blood work demonstrates low normal white count with otherwise negative chemistries and test and urinalysis. Departure - Departure Disposition: 01 Home, Self Care Clinical Impression: Vomiting Qualifiers: Vomiting type: unspecified Nausea presence: with nausea Qualified Code(s): R11.2 - Nausea with vomiting, unspecified Abdominal pain Qualifiers: Abdominal location: generalized Qualified Code(s): R10.84 - Generalized abdominal pain Condition: Good Record reviewed to determine appropriate education?: Yes Instructions: ED Nausea Vomiting Prescriptions: Dicyclomine [Bentyl] 1 - 2 tab PO QID PRN #20 cap PRN Reason: Abdominal Pain Meloxicam [Mobic] 7.5 mg PO BID PRN #10 tablet PRN Reason: Pain Ondansetron Odt [Zofran] 4 mg TL Q6H PRN #10 tablet PRN Reason: Nausea / Vomiting Comments: I sent your prescriptions to [facility] in [place] Return if not improving over the next 24 hours, anytime if worse or if new symptoms develop. Discharge Date/Time: 07/02/21 17:07
[2021-07-02 15:56] LABS: BASOPHILS % (AUTO) 0.3 %; HCT - HEMATOCRIT 43.7 % (37.0-47.0); HGB - HEMOGLOBIN 14.7 g/dL (12.0-16.0); LYMPHOCYTES # (AUTO) 1.5 10^3/uL (1.5-3.5); LYMPHOCYTES % (AUTO) 38.3 %; MEAN CORPUSCULAR HEMOGLOBIN 28.9 pg (27.0-31.0); MEAN CORPUSCULAR HGB CONC 33.6 g/dL (32.0-36.0); MEAN PLATELET VOLUME 11.9 fL (7.9-10.8); MONOCYTES # (AUTO) 0.5 10^3/uL (0.0-1.0); MONOCYTES % (AUTO) 12.6 %; NEUTROPHILS # (AUTO) 1.9 10^3/uL (1.5-6.6); NEUTROPHILS % (AUTO) 47.8 %; PLT - PLATELET COUNT 141 10^3/uL (130-450); RED BLOOD COUNT 5.08 10^6/uL (4.20-5.40); RED CELL DISTRIBUTION WIDTH 12.5 % (12.0-15.0)
[2021-07-02 16:03] LABS: BILIRUBIN,URINE NEGATIVE (NEGATIVE); GLUCOSE, URINE (UA) NEGATIVE (NEGATIVE); KETONES,URINE (UA) NEGATIVE (NEGATIVE); LEUKOCYTE ESTERASE, URINE NEGATIVE (NEGATIVE); NITRITE,URINE NEGATIVE (NEGATIVE); OCCULT BLOOD,URINE NEGATIVE (NEGATIVE); PROTEIN,URINE NEGATIVE (NEGATIVE); UROBILINOGEN,URINE 0.2 (NORMAL) E.U./dL (NORMAL)
[2021-07-02 16:06] LABS: CLARITY,URINE CLEAR (CLEAR); HCG UR QUAL NEGATIVE
[2021-07-02 16:06] LABS: ALBUMIN 4.4 g/dL (3.2-5.5); ALBUMIN/GLOBULIN RATIO 1.3 (1.0-2.2); BILIRUBIN,TOTAL 0.6 mg/dL (0.2-1.0); CALCIUM 9.6 mg/dL (8.5-10.3); CREATININE 0.8 mg/dL (0.4-1.0); POTASSIUM 3.9 mmol/L (3.5-5.0); TOTAL PROTEIN 7.8 g/dL (6.7-8.2)
== END 2021-07-02 17:07 | disposition home or self-care (01) ==
LOC: ED 14:33
DX: R10.84 Generalized abdominal pain (principal); R11.2 Nausea with vomiting, unspecified; Z86.16 Personal history of COVID-19
CPT/HCPCS: 36415; 80053; 81001; 81003; 81025; 83690; 85025; 87086; 96361; 96374; 99283

== ENCOUNTER 2021-07-18 21:40 | Emergency (ER) | payer MEDICAID ==
[2021-07-18 21:48] VITALS: BP 140/80
[2021-07-18 22:03] LABS: BILIRUBIN,URINE NEGATIVE (NEGATIVE); GLUCOSE, URINE (UA) NEGATIVE (NEGATIVE); KETONES,URINE (UA) TRACE mg/dL (NEGATIVE); LEUKOCYTE ESTERASE, URINE NEGATIVE (NEGATIVE); NITRITE,URINE NEGATIVE (NEGATIVE); OCCULT BLOOD,URINE TRACE-LYSE (NEGATIVE); PROTEIN,URINE NEGATIVE (NEGATIVE); UROBILINOGEN,URINE 0.2 (NORMAL) E.U./dL (NORMAL)
[2021-07-18 22:04] LABS: CLARITY,URINE CLEAR (CLEAR); HCG UR QUAL NEGATIVE
[2021-07-18 22:15] LABS: BASOPHILS # (AUTO) 0.1 10^3/uL (0.0-0.1); BASOPHILS % (AUTO) 0.6 %; EOSINOPHILS # (AUTO) 0.1 10^3/uL (0.0-0.7); EOSINOPHILS % (AUTO) 1.5 %; HCT - HEMATOCRIT 42.3 % (37.0-47.0); LYMPHOCYTES # (AUTO) 1.7 10^3/uL (1.5-3.5); LYMPHOCYTES % (AUTO) 22.1 %; MEAN CORPUSCULAR HEMOGLOBIN 29.2 pg (27.0-31.0); MEAN CORPUSCULAR HGB CONC 33.1 g/dL (32.0-36.0); MEAN CORPUSCULAR VOLUME 88.3 fL (81.0-99.0); MEAN PLATELET VOLUME 11.3 fL (7.9-10.8); MONOCYTES # (AUTO) 0.8 10^3/uL (0.0-1.0); MONOCYTES % (AUTO) 9.6 %; NEUTROPHILS # (AUTO) 5.1 10^3/uL (1.5-6.6); NEUTROPHILS % (AUTO) 65.9 %; PLT - PLATELET COUNT 205 10^3/uL (130-450); RED BLOOD COUNT 4.79 10^6/uL (4.20-5.40); RED CELL DISTRIBUTION WIDTH 13.2 % (12.0-15.0); WHITE BLOOD COUNT 7.8 x10^3/uL (4.8-10.8)
[2021-07-18] MEDS ORDERED: KETOROLAC 15 MG/ML VIAL IVP STA (22:22)
[2021-07-18 22:28] LABS: ALBUMIN 4.3 g/dL (3.2-5.5); ALBUMIN/GLOBULIN RATIO 1.4 (1.0-2.2); BILIRUBIN,TOTAL 0.9 mg/dL (0.2-1.0); CALCIUM 9.8 mg/dL (8.5-10.3); CREATININE 0.8 mg/dL (0.4-1.0); POTASSIUM 3.8 mmol/L (3.5-5.0); TOTAL PROTEIN 7.4 g/dL (6.7-8.2)
--- NOTE | 2021-07-18 23:43 | ED Physician Documentation ---
History of Present Illness - Stated complaint Stated Complaint: ABD PX - Chief complaint Chief Complaint: Abd Pain - History obtained from History obtained from: Patient - Additonal information Additional information: 25-year-old woman with history of IBS, past surgical history of salpingectomy presents with gradual onset bloating, cramping, sharp intermittent abdominal pain for the past 2 days associated with brown spotting in her underwear. Patient has not had her menses since May which is unusual for her.She had a similar episode of bloating and abdominal pain 2 weeks ago.Endorses increased urinary frequency but no dysuria or hematuria. Decreased appetite. Denies fever, diarrhea, vomiting. Review of Systems Ten Systems: 10 systems reviewed and negative Constitutional: denies: Fever, Chills GI: reports: Abdominal Pain. denies: Nausea, Vomiting, Diarrhea : reports: Frequency. 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 : None HEENT: None Psych: None Musculoskeletal: None Derm: None - Past Surgical History Past Surgical History: Yes /DOOR SLINGER: section, Tubal ligation - Present Medications Home Medications: Ambulatory Orders Medication Instructions Recorded Confirmed Albuterol 2.5 mg INH RTQ4H PRN neb 02/18/18 Calcium Carbonate [Tums (Calcium 1 tab PO Q6H PRN tablet 02/18/18 Carbonate 500mg)] Celecoxib [CeleBREX] 200 mg PO BID PRN #20 capsule 02/18/18 Docusate Sodium [Dulcolax Stool 100 mg PO BID #60 capsule 02/18/18 Softener] Fluticasone 44 Mcg [Flovent] 1 puffs INH BID #1 inhaler 02/18/18 oxyCODONE [Roxicodone] 1 - 2 tab PO Q4HR PRN #20 tablet 02/18/18 Azithromycin [Zithromax] 500 mg PO DAILY #6 tablet 05/10/18 Famotidine [Pepcid] 20 mg PO BID #28 tablet 05/10/18 Albuterol Sulf [Ventolin Hfa 1 - 2 puffs INH Q4HR PRN #1 inhaler 07/06/18 Inhaler] Amoxicillin 500 mg PO TID #30 capsule 07/06/18 predniSONE [Deltasone] 20 mg PO [id number] #21 tab 07/06/18 Amoxicillin 875 mg PO BID #14 tablet 08/07/19 Hydrocodone/Acetaminophen 1 - 2 each PO Q6H PRN #14 tablet 08/07/19 [Hydrocodon-Acetaminophen 5-325] HYDROcod/ACETAM 5/325 [[place] 5/325] 1 - 2 ea PO Q6H PRN #14 tablet 06/22/20 Penicillin V Potassium 500 mg PO Q6HR #40 tablet 06/22/20 Dicyclomine [Bentyl] 1 - 2 tab PO QID PRN #20 cap 07/02/21 Meloxicam [Mobic] 7.5 mg PO BID PRN #10 tablet 07/02/21 Ondansetron Odt [Zofran] 4 mg TL Q6H PRN #10 tablet 07/02/21 - Allergies Allergies/Adverse Reactions: Allergies Allergy/AdvReac Type Severity Reaction Status Date / Time No Known Drug Allergies Allergy Verified 07/18/21 21:43 - Social History Does the pt smoke?: No Smoking Status: Never smoker Does the pt drink ETOH?: No Does the pt have substance abuse?: No - Immunizations Immunizations are current?: Yes Immunizations: TDAP >10years/unknown - POLST Patient has POLST: No PD ED PE NORMAL - Vitals Vital signs reviewed: Yes - General General: Alert and oriented X 3, No acute distress, Well developed/nourished - HEENT HEENT: Atraumatic, PERRL, EOMI - Neck Neck: Supple, no meningeal sign - Cardiac Cardiac: RRR - Respiratory Respiratory: No respiratory distress, Clear bilaterally - Abdomen Abdomen: Non tender, Non distended - Back Back: No CVA TTP - Derm Derm: Normal color, Warm and dry - Extremities Extremities: No deformity - Neuro Neuro: Alert and oriented X 3, No motor deficit, No sensory deficit - Psych Psych: Normal mood, Normal affect Results - Vitals Vitals: Vital Signs - 24 hr 07/18/21 21:43 Temperature 36.6 C Heart Rate 88 Respiratory 16 Rate Blood Pressure 140/80 H O2 Saturation 97 Oxygen O2 Source Room air - Labs Labs: Laboratory Tests 07/18/21 07/18/21 07/18/21 21:57 22:09 22:09 WBC 7.8 RBC 4.79 Hgb 14.0 Hct 42.3 MCV 88.3 MCH 29.2 MCHC 33.1 RDW 13.2 Plt Count 205 MPV 11.3 H Neut # (Auto) 5.1 Lymph # (Auto) 1.7 [place] # (Auto) 0.8 Eos # (Auto) 0.1 Baso # (Auto) 0.1 Absolute Nucleated RBC 0.00 Nucleated RBC % 0.0 Sodium 140 Potassium 3.8 Chloride 104 Carbon Dioxide 27 Anion Gap 9.0 BUN 14 Creatinine 0.8 Estimated GFR (MDRD) 87 L Glucose 102 H Calcium 9.8 Total Bilirubin 0.9 AST 20 ALT 17 Alkaline Phosphatase 69 Total Protein 7.4 Albumin 4.3 Globulin 3.1 Albumin/Globulin Ratio 1.4 Lipase 29 Urine Color YELLOW Urine Clarity CLEAR Urine pH 6.0 Ur Specific [place] >=1.030 H Urine Protein NEGATIVE Urine Glucose (UA) NEGATIVE Urine Ketones TRACE Urine Occult Blood TRACE-LYSE Urine Nitrite NEGATIVE Urine Bilirubin NEGATIVE Urine Urobilinogen 0.2 (NORMAL) Ur Leukocyte Esterase NEGATIVE Ur Microscopic Review NOT INDICATED Urine Culture Comments NOT INDICATED Urine HCG, Qual NEGATIVE PD MEDICAL DECISION MAKING - ED course ED course: 25yF presents with gradual onset abd pain X 2 days with irregular menses. pain improved with toradol in ED. test negative therefore low suspicion ectopic. keyonnaley to be torsed given gradual onset and mild symptoms. will have her f/u with her pmd and with miller helper. return precautions given. Departure - Departure Disposition: 01 Home, Self Care Clinical Impression: Bloating, Irregular menses, Abdominal discomfort Condition: Good Instructions: Abdominal Pain Follow-Up: Norma Downey ARNP [Primary Care Provider] - Solange Reyna MD [Provider Admit Priv/Credential] - Comments: You are seen in the emergency department for evaluation of abdominal pain, bloating, and irregular menses. Your vital signs, exam, and labs including urine test and test showed no emergent findings. Please follow-up with Dr. Reyna and Norma Downey. Return to the emergency department if you have any new or worsening symptoms or other concerns.
== END 2021-07-19 00:02 | disposition home or self-care (01) ==
LOC: ED 21:40
DX: R10.9 Unspecified abdominal pain (principal); R14.0 Abdominal distension (gaseous); R35.0 Frequency of micturition; N92.6 Irregular menstruation, unspecified
CPT/HCPCS: 36415; 80053; 81001; 81003; 81025; 83690; 85025; 87086; 96374; 99282

== ENCOUNTER 2021-11-02 11:07 | Emergency (ER) | payer MEDICAID ==
[2021-11-02 11:24] VITALS: BP 158/92
[2021-11-02] MEDS ORDERED: predniSONE 20 MG TABLET PO STA (11:45)
[2021-11-02] MEDS ORDERED: BENZONATATE 100 MG CAPSULE PO STA (11:45)
[2021-11-02] MEDS ORDERED: DOXYCYCLINE 100 MG TABLET PO STA (11:45)
--- NOTE | 2021-11-02 11:47 | ED Physician Documentation ---
PD HPI DYSPNEA - Stated complaint Stated Complaint: SOA/SWEATING - Chief complaint Chief Complaint: Resp - History obtained from History obtained from: Patient - Additional information Additional information: This is a young woman with history of asthma who presents with a 2-week illness marked by productive cough, sweats without measured fevers. Her children have been sick with viral URIs, COVID-negative. She declines COVID testing here. The cough is productive with colored sputum. Review of Systems Constitutional: reports: Chills, Sweats. 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: section, Tubal ligation - Present Medications Home Medications: Ambulatory Orders Medication Instructions Recorded Confirmed Albuterol 2.5 mg INH RTQ4H PRN neb 02/18/18 Calcium Carbonate [Tums (Calcium 1 tab PO Q6H PRN tablet 02/18/18 Carbonate 500mg)] Celecoxib [CeleBREX] 200 mg PO BID PRN #20 capsule 02/18/18 Docusate Sodium [Dulcolax Stool 100 mg PO BID #60 capsule 02/18/18 Softener] Fluticasone 44 Mcg [Flovent] 1 puffs INH BID #1 inhaler 02/18/18 oxyCODONE [Roxicodone] 1 - 2 tab PO Q4HR PRN #20 tablet 02/18/18 Azithromycin [Zithromax] 500 mg PO DAILY #6 tablet 05/10/18 Famotidine [Pepcid] 20 mg PO BID #28 tablet 05/10/18 Albuterol Sulf [Ventolin Hfa 1 - 2 puffs INH Q4HR PRN #1 inhaler 07/06/18 Inhaler] Amoxicillin 500 mg PO TID #30 capsule 07/06/18 predniSONE [Deltasone] 20 mg PO [id number] #21 tab 07/06/18 Amoxicillin 875 mg PO BID #14 tablet 08/07/19 Hydrocodone/Acetaminophen 1 - 2 each PO Q6H PRN #14 tablet 08/07/19 [Hydrocodon-Acetaminophen 5-325] HYDROcod/ACETAM 5/325 [[place] 5/325] 1 - 2 ea PO Q6H PRN #14 tablet 06/22/20 Penicillin V Potassium 500 mg PO Q6HR #40 tablet 06/22/20 Dicyclomine [Bentyl] 1 - 2 tab PO QID PRN #20 cap 07/02/21 Meloxicam [Mobic] 7.5 mg PO BID PRN #10 tablet 07/02/21 Ondansetron Odt [Zofran] 4 mg TL Q6H PRN #10 tablet 07/02/21 Benzonatate [Tessalon] 200 mg PO QID PRN #20 cap 11/02/21 Doxycycline Hyclate 100 mg PO BID #14 tab.sr 11/02/21 guaiFENesin/CODEINE [Robitussin AC] 5 - 10 ml PO Q6H PRN #120 ml 11/02/21 predniSONE [Deltasone] 60 mg PO DAILY 5 Days #15 tablet 11/02/21 - Allergies Allergies/Adverse Reactions: Allergies Allergy/AdvReac Type Severity Reaction Status Date / Time No Known Drug Allergies Allergy Verified 11/02/21 11:21 - Social History Does the pt smoke?: No Smoking Status: Never smoker Does the pt drink ETOH?: No Does the pt have substance abuse?: No - Immunizations Immunizations are current?: Yes Immunizations: TDAP >10years/unknown - POLST Patient has POLST: No PD ED PE NORMAL - Vitals Vital signs reviewed: Yes - General General: Alert and oriented X 3, Other (Speaking in full sentences and paragraphs with no evidence of respiratory distress.) - HEENT HEENT: Pharynx benign - Neck Neck: Supple, no meningeal sign, No bony TTP - Cardiac Cardiac: RRR, No murmur - Respiratory Respiratory: Other (Diffuse rhonchi and expiratory wheezes throughout, nonlabored) - Abdomen Abdomen: Normal bowel sounds, Soft, Non tender - Extremities Extremities: No edema, No calf tenderness / cord - Neuro Neuro: Alert and oriented X 3, Normal speech - Psych Psych: Normal mood, Normal affect Results - Vitals Vitals: Vital Signs - 24 hr 11/02/21 11:17 Temperature 35.9 C L Heart Rate 89 Respiratory 20 Rate Blood Pressure 158/92 H O2 Saturation 99 Oxygen O2 Source Room air PD MEDICAL DECISION MAKING - ED course ED course: 26-year-old woman presents with bronchitis, given the timeframe seems reasonable to trial antibiotics after 2 weeks. As well as symptomatic treatments. Departure - Departure Disposition: 01 Home, Self Care Clinical Impression: Asthma, Bronchitis Condition: Good Record reviewed to determine appropriate education?: Yes Instructions: ED Bronchitis Asthmatic Prescriptions: predniSONE [Deltasone] 60 mg PO DAILY 5 Days #15 tablet Doxycycline Hyclate 100 mg PO BID #14 tab.sr guaiFENesin/CODEINE [Robitussin AC] 5 - 10 ml PO Q6H PRN #120 ml PRN Reason: Cough Benzonatate [Tessalon] 200 mg PO QID PRN #20 cap PRN Reason: Cough Comments: I sent your prescriptions electronically to [facility] in [place]. As discussed it seems like you have bronchitis, given the timeframe is reasonable we will trial some antibiotics in addition to steroids and cough medicine. Return if worse. Follow-up with your doctor in about 3 to 5 days if not improving. You can continue your nebulizer as needed for the symptoms as well. Do not drink or drive while taking codeine cough syrup.
== END 2021-11-02 12:00 | disposition home or self-care (01) ==
LOC: ED 11:07
DX: J45.909 Unspecified asthma, uncomplicated (principal)
CPT/HCPCS: 99284; A9270; J7512

== ENCOUNTER 2023-04-01 19:22 | Emergency (ER) | payer MEDICAID ==
[2023-04-01 19:36] VITALS: BP 137/76; O2SAT 100
[2023-04-01 19:56] LABS: RAPID STREP SCREEN Negative (Negative)
--- NOTE | 2023-04-01 20:45 | ED Physician Documentation ---
PD HPI HEENT - Stated complaint Stated Complaint: THROAT PX/DIFFICULTY SWALLOWING - Chief complaint Chief Complaint: Heent - History obtained from History obtained from: Patient (Mostly right-sided throat pain starting today. Hurts to swallow. 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, Tubal ligation - Present Medications Home Medications: Ambulatory Orders Medication Instructions Recorded Confirmed No Known Home Medications 04/01/23 04/01/23 - Allergies Allergies/Adverse Reactions: Allergies Allergy/AdvReac Type Severity Reaction Status Date / Time No Known Drug Allergies Allergy Verified 04/01/23 19:35 - Social History Does the pt smoke?: No Smoking Status: Never smoker Does the pt drink ETOH?: No Does the pt have substance abuse?: No - Immunizations Immunizations are current?: Yes Immunizations: TDAP >10years/unknown - POLST Patient has POLST: No PD ED PE NORMAL - Vitals Vital signs reviewed: Yes - General General: Alert and oriented X 3, No acute distress - HEENT HEENT: Other (Mildly red tonsils, no no uvular deviation, mild anterior cervical adenopathy. Supple neck.) - Neck Neck: Supple, no meningeal sign, No bony TTP - Neuro Neuro: Alert and oriented X 3, Normal speech Results - Vitals Vitals: Vital Signs - 24 hr 04/01/23 19:28 Temperature 36.9 C Heart Rate 88 Respiratory 17 Rate Blood Pressure 137/76 H O2 Saturation 100 Oxygen O2 Source Room air - Labs Labs: Laboratory Tests 04/01/23 19:29 Group A Strep Rapid Negative PD Medical Decision Making - ED course ED course: Rapid strep test negative, likely viral pharyngitis. She appears well with relatively unremarkable examination otherwise. Departure - Departure Disposition: 01 Home, Self Care Clinical Impression: Viral pharyngitis Condition: Stable Instructions: ED Pharyngitis Viral Report Pending Comments: Tylenol and/or ibuprofen as needed for pain, you can also use [id number] such as Chloraseptic or cough drops. We will perform a throat culture and call you if there are any changes. Return if worse.
== END 2023-04-01 20:46 | disposition home or self-care (01) ==
LOC: ED 19:22
DX: J02.9 Acute pharyngitis, unspecified (principal)
CPT/HCPCS: 87070; 87430; 99282; 99283

== ENCOUNTER 2023-09-05 18:27 | Emergency (ER) | payer MEDICAID ==
[2023-09-05 18:44] VITALS: O2SAT 100
--- NOTE | 2023-09-05 19:24 | ED Physician Documentation ---
PD HPI BACK PAIN - Stated complaint Stated Complaint: BACK PX - Chief complaint Chief Complaint: Back Pain - History obtained from History obtained from: Patient - History of Present Illness Timing - onset: Today Pain level max: 8 Pain level now: 6 Location: Lower Quality: Pain, Spasm, Similar to prior episodes Associated symptoms: No: Fever, Weakness, Numbness, Incontinent of urine, Unable to urinate, Hematuria, Incontinent of stool Improves with: Rest Worsened by: Movement Contributing factors: No: Lifting, Twisting, Trauma, Anticoagulated, Cancer, IVDA - Additional information Additional information: 28-year-old female presents to the emergency department bilateral lower lumbar back pain. Worse with movement, better with rest. She does not recall any specific injury but states she has had issues with her back in the past. She went to the chiropractor today, but states that the pain was worse afterwards. No numbness or tingling. No loss of bowel or bladder control. No IV drug use. No fevers. No chills. Denies any possibility of . Has had a tubal ligation. 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: section, Tubal ligation - Present Medications Home Medications: Ambulatory Orders Medication Instructions Recorded Confirmed HYDROcod/ACETAM 5/325 [[place] 5/325] 1 - 2 ea PO Q6H PRN #14 tablet 09/05/23 Meloxicam [Mobic] 7.5 mg PO BID PRN #20 tablet 09/05/23 methocarbamoL [Robaxin] 500 mg PO Q6H PRN #20 tablet 09/05/23 - Allergies Allergies/Adverse Reactions: Allergies Allergy/AdvReac Type Severity Reaction Status Date / Time No Known Drug Allergies Allergy Verified 04/01/23 19:35 - Social History Does the pt smoke?: No Smoking Status: Never smoker Does the pt drink ETOH?: No Does the pt have substance abuse?: No - Immunizations Immunizations are current?: Yes Immunizations: TDAP >10years/unknown - POLST Patient has POLST: No PD ED PE NORMAL - Vitals Vital signs reviewed: Yes - General General: Alert and oriented X 3, No acute distress - HEENT HEENT: PERRL, Moist mucous membranes - Neck Neck: Supple, no meningeal sign - Cardiac Cardiac: RRR, Strong equal pulses - Respiratory Respiratory: No respiratory distress, Clear bilaterally - Abdomen Abdomen: Soft, Non tender, Non distended - Back Back: No spinal TTP, Other (Paraspinal bilateral lumbar spasm. No midline tenderness to palpation or percussion. No step-off or deformity.) - Derm Derm: Warm and dry - Extremities Extremities: No edema, No calf tenderness / cord - Neuro Neuro: Alert and oriented X 3, take down inspector 2-12 intact, No motor deficit, No sensory deficit, Normal speech, Other (Normal bilateral lower extremity patellar and ankle jerk reflexes. Normal great toe extension bilaterally. no saddle anesthesia) - Psych Psych: Normal mood, Normal affect Results - Vitals Vitals: Vital Signs - 24 hr 09/05/23 09/05/23 09/05/23 18:34 20:00 20:24 Temperature 36.6 C Heart Rate 88 68 Respiratory 20 16 Rate Blood Pressure 133/100 H 125/75 O2 Saturation 100 100 100 Oxygen O2 Source Room air PD Medical Decision Making - ED course Complexity details: re-evaluated patient, considered differential (No cauda equina, no spinal epidural abscess, no fracture, no aortic dissection or evidence of aneursym rupture), d/w patient ED course: 28-year-old female with bilateral lower lumbar paraspinal spasm. Feels much better after Toradol and dexamethasone. Ambulating without difficulty. No focal neurological deficits. No evidence of cauda equina, epidural abscess. No fracture or trauma. Will place on pain medication muscle relaxants for home and have her follow-up with her doctor for further care. Patient counseled regarding signs and symptoms for which I believe and urgent re-evaluation would be necessary. Patient with good understanding of and agreement to plan and is comfortable going home at this time This document was made in part using voice recognition software. While efforts are made to proofread this document, sound alike and grammatical errors may occur. Departure - Departure Disposition: 01 Home, Self Care Clinical Impression: Back pain Qualifiers: Back pain location: low back pain Chronicity: acute Back pain laterality: bilateral Sciatica presence: without sciatica Qualified Code(s): M54.50 - Low back pain, unspecified Condition: Good Instructions: ED Neck Back Pain General Follow-Up: GABE JOHN PA-C [Primary Care Provider] - Prescriptions: Meloxicam [Mobic] 7.5 mg PO BID PRN #20 tablet PRN Reason: Pain HYDROcod/ACETAM 5/325 [[place] 5/325] 1 - 2 ea PO Q6H PRN #14 tablet PRN Reason: Pain methocarbamoL [Robaxin] 500 mg PO Q6H PRN #20 tablet PRN Reason: muscle spasm Comments: Please follow-up with your doctor for further care. This should improve over the next few days with muscle relaxants and pain medication. You are given a dose of Toradol and dexamethasone tonight. The Toradol is an anti-inflammatory medication and the dexamethasone is a steroid. Your prescriptions were sent to [facility] in [place]. I am prescribing a short course of narcotic pain medication for you. These are potentially dangerous and addictive medications that should be used carefully. These medications may constipate you. Take an [id number]-ype-[id number] stool softener (docusate) twice daily with plenty of water while taking these medications. If you go 24 hours without a bowel movement, take [id number] miralax, per package instructions. Do not drink or drive while taking these medications. If you received narcotic or sedating medications while in the emergency department, do not drive for 24 hours. Store this medication in a safe, secure place and out of reach of children. It is a violation of federal law to give or sell this medication to another person or to use in a manner other than prescribed. The ED will not refill narcotic prescriptions, including prescriptions lost or stolen. To dispose of unwanted medications: 1. [facility] [address] in [place] has a medication drop box. They accept prescription medications (in pill form) Thursday through Thursday 9:00 a.m. to 5:00 p.m. 2. [facility] accepts prescription medications (in pill form only) for disposal year round. Call for more information. 3. Contact the [facility] for the next [facility] sponsored prescription drug collection event. , [phone], or [phone]; Discharge Date/Time: 09/05/23 20:24
[2023-09-05] MEDS: KETOROLAC 60 MG/2 ML VIAL IM STA (19:30)
[2023-09-05] MEDS: DEXAMETHASONE 10 MG/ML VIAL PO STA (19:30)
[2023-09-05 20:20] VITALS: BP 125/75
== END 2023-09-05 20:24 | disposition home or self-care (01) ==
LOC: ED 18:27
DX: M54.50 Low back pain, unspecified (principal)
CPT/HCPCS: 96372; 99283

== ENCOUNTER 2023-11-17 16:59 | Emergency (ER) | payer MEDICAID ==
[2023-11-17 17:15] VITALS: BP 153/95; O2SAT 100
--- NOTE | 2023-11-17 19:07 | XRAY Report ---
PROCEDURE: Hand 3+V LT INDICATIONS: Trauma TECHNIQUE: 3 views of the hand(s) acquired. COMPARISON: None. FINDINGS: Bones: No fractures or dislocations. No suspicious bony lesions. Soft tissues: No suspicious soft tissue calcifications or masses. IMPRESSION: No acute bony abnormality. Reviewed by: Nohemi Bañuelos MD, PhD on 11/17/2023 7:05 PM PDT Approved by: Nohemi Bañuelos MD, PhD on 11/17/2023 7:05 PM PDT Station ID: [id number]
--- NOTE | 2023-11-17 19:42 | ED Physician Documentation ---
PD HPI UPPER EXT INJURY - Stated complaint Stated Complaint: L HAND PX - Chief complaint Chief Complaint: Trauma Ext - History obtained from History obtained from: Patient - Additonal information Additional information: Patient comes to the emergency department chief complaint of left hand pain. She was at work and was changing a large hose, when her coworker accidentally let go of it and it snapped back, with a metal fitting hitting the back of her left hand. The patient states that this happened about an hour ago and that initially, it was very painful and swelled up, that the swelling is gone down and the pains improved a little bit. She states it still does hurt quite a bit. No pain in her wrist, though she did have a pain that shot up her forearm when it first happened. The patient denies any other injuries or complaints. No prior injury to this hand. 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: section, Tubal ligation - Present Medications Home Medications: Ambulatory Orders Medication Instructions Recorded Confirmed HYDROcod/ACETAM 5/325 [[place] 5/325] 1 - 2 ea PO Q6H PRN #14 tablet 09/05/23 Meloxicam [Mobic] 7.5 mg PO BID PRN #20 tablet 09/05/23 methocarbamoL [Robaxin] 500 mg PO Q6H PRN #20 tablet 09/05/23 - Allergies Allergies/Adverse Reactions: Allergies Allergy/AdvReac Type Severity Reaction Status Date / Time No Known Drug Allergies Allergy Verified 11/17/23 17:14 - Social History Does the pt smoke?: No Smoking Status: Never smoker Does the pt drink ETOH?: No Does the pt have substance abuse?: No - Immunizations Immunizations are current?: Yes Immunizations: TDAP >10years/unknown - POLST Patient has POLST: No PD ED PE NORMAL - Vitals Vital signs reviewed: Yes - General General: Alert and oriented X 3, No acute distress, Well developed/nourished - HEENT HEENT: Atraumatic, EOMI, Moist mucous membranes - Neck Neck: Supple, no meningeal sign - Cardiac Cardiac: Strong equal pulses - Respiratory Respiratory: No respiratory distress - Derm Derm: Warm and dry, No rash, Other (Mild contusion, left hand dorsum.) - Extremities Extremities: No deformity, Other (Mild tenderness to palpation of dorsum of left hand. No obvious deformity.) - Neuro Neuro: No motor deficit, No sensory deficit, Other (Alert, grossly intact.) - Psych Psych: Normal mood, Normal affect Results - Vitals Vitals: Oxygen O2 Source Room air - Rads (name of study) Left hand x-ray series Relevant Findings:: Final report received, See rad report (Negative) PD Medical Decision Making - ED course Complexity details: reviewed results, re-evaluated patient, considered differential, d/w patient ED course: I discussed with the patient that her x-ray series was negative for any fractures. We have discussed symptomatic management at home, work limitations, and the usual indications for return. Departure - Departure Disposition: 01 Home, Self Care Clinical Impression: Hand contusion Qualifiers: Encounter type: initial encounter Laterality: left Qualified Code(s): S60.222A - Contusion of left hand, initial encounter Condition: Stable Instructions: ED Contusion Hand Comments: Your x-ray looks good--no broken bones. You have most likely bruised your hand. You may use the hand as much as you feel able, and may take ibuprofen, Tylenol and ice packs to help relieve discomfort. Forms: PCP List Discharge Date/Time: 11/17/23 19:44
== END 2023-11-17 19:44 | disposition home or self-care (01) ==
LOC: ED 16:59
DX: S60.222A Contusion of left hand, initial encounter (principal); W20.8XXA Other cause of strike by thrown, projected or falling object, initial encounter; Y93.89 Activity, other specified; Y92.89 Other specified places as the place of occurrence of the external cause; Y99.0 Civilian activity done for income or pay
CPT/HCPCS: 99283